=== PATIENT | female | born 1950 | race Caucasian/White ===

== ENCOUNTER → 2019-12-21 12:57 | Outpatient (BNVA) | payer MEDICAID, SELFPAY | PROVIDERS: Family Provider Family Medicine; PCP Family Medicine; Visit Provider Anesthesiology | DX: G89.29 Other chronic pain (principal); M51.36 Other intervertebral disc degeneration, lumbar region; M51.17 Intervertebral disc disorders with radiculopathy, lumbosacral region; M47.816 Spondylosis without myelopathy or radiculopathy, lumbar region; M54.2 Cervicalgia; M25.511 Pain in right shoulder; M25.552 Pain in left hip; F17.210 Nicotine dependence, cigarettes, uncomplicated; Z79.891 Long term (current) use of opiate analgesic | CPT/HCPCS: 99214 ==

== ENCOUNTER → 2020-01-02 12:12 | Outpatient (BNVA) | payer MEDICAID, SELFPAY | PROVIDERS: Family Provider Family Medicine; PCP Family Medicine; Visit Provider Psychiatry & Neurology Psychiatry | DX: F33.1 Major depressive disorder, recurrent, moderate (principal) | CPT/HCPCS: 99213 ==

== ENCOUNTER → 2020-04-02 08:31 | Outpatient (BNVA) | payer MEDICAID, SELFPAY | PROVIDERS: Family Provider Family Medicine; PCP Family Medicine; Visit Provider Psychiatry & Neurology Psychiatry | DX: F33.1 Major depressive disorder, recurrent, moderate (principal) | CPT/HCPCS: 99213 ==

== ENCOUNTER → 2020-04-05 10:07 | Outpatient (BNVA) | payer MEDICAID, SELFPAY | PROVIDERS: Family Provider Family Medicine; PCP Family Medicine; Visit Provider Anesthesiology | DX: G89.29 Other chronic pain (principal); M54.16 Radiculopathy, lumbar region; M51.36 Other intervertebral disc degeneration, lumbar region; M47.816 Spondylosis without myelopathy or radiculopathy, lumbar region; M54.9 Dorsalgia, unspecified; M54.2 Cervicalgia; Z89.619 Acquired absence of unspecified leg above knee; F17.210 Nicotine dependence, cigarettes, uncomplicated; Z79.891 Long term (current) use of opiate analgesic; Z71.6 Tobacco abuse counseling | CPT/HCPCS: 99214 ==

== ENCOUNTER 2020-04-18 13:52 | Outpatient (CLI) | payer MEDICAID, SELFPAY ==
--- NOTE | 2020-04-18 14:11 | XR_ITS ---
WS: [id number] XR chest 2V* [id number] REASON FOR EXAM: ELEVATED WBC WITH SOB FINDINGS: Comparisons were made to June 07, 2017. The heart and mediastinum are normal. The lung brooks are hyper aerated with evidence of chronic emphysema this changes bilaterally. There is no definite pneumonia, pleural effusion, pulmonary edema, or mass effect. Hilum and apices are normal. No osseous abnormalities. XR/XR chest 2V* [id number] IMPRESSION: Chronic obstructive pulmonary disease.
== END 2020-04-18 13:53 | disposition home or self-care (01) ==
LOC: RADWPI 13:53
PROVIDERS: Family Provider Family Medicine; PCP Family Medicine; Visit Provider Family Medicine
DX: D72.829 Elevated white blood cell count, unspecified (principal); R06.02 Shortness of breath
CPT/HCPCS: 71046

== ENCOUNTER → 2020-06-04 09:58 | Outpatient (BNVA) | payer MEDICAID, SELFPAY | PROVIDERS: Family Provider Family Medicine; PCP Family Medicine; Visit Provider Anesthesiology | DX: G89.29 Other chronic pain (principal); M51.36 Other intervertebral disc degeneration, lumbar region; M54.16 Radiculopathy, lumbar region; M47.816 Spondylosis without myelopathy or radiculopathy, lumbar region; M54.2 Cervicalgia; M54.9 Dorsalgia, unspecified; F17.210 Nicotine dependence, cigarettes, uncomplicated; Z89.619 Acquired absence of unspecified leg above knee; Z79.891 Long term (current) use of opiate analgesic | CPT/HCPCS: 99214 ==

== ENCOUNTER → 2020-08-01 08:49 | Outpatient (BNVA) | payer MEDICAID, SELFPAY | PROVIDERS: Family Provider Family Medicine; PCP Family Medicine; Visit Provider Nurse Practitioner | DX: G89.29 Other chronic pain (principal); M51.36 Other intervertebral disc degeneration, lumbar region; M47.816 Spondylosis without myelopathy or radiculopathy, lumbar region; M54.16 Radiculopathy, lumbar region; M54.2 Cervicalgia; M54.9 Dorsalgia, unspecified; F17.210 Nicotine dependence, cigarettes, uncomplicated; Z89.619 Acquired absence of unspecified leg above knee; Z79.891 Long term (current) use of opiate analgesic | CPT/HCPCS: 99214 ==

== ENCOUNTER → 2020-08-08 08:24 | Outpatient (BNVA) | payer MEDICAID, SELFPAY | PROVIDERS: Family Provider Family Medicine; PCP Family Medicine; Visit Provider Psychiatry & Neurology Psychiatry | DX: F33.1 Major depressive disorder, recurrent, moderate (principal) | CPT/HCPCS: 99214 ==

== ENCOUNTER → 2020-09-19 09:24 | Outpatient (BNVA) | payer MEDICAID, SELFPAY | PROVIDERS: Family Provider Family Medicine; PCP Family Medicine; Visit Provider Anesthesiology | DX: G89.29 Other chronic pain (principal); M47.816 Spondylosis without myelopathy or radiculopathy, lumbar region; M54.16 Radiculopathy, lumbar region; M51.36 Other intervertebral disc degeneration, lumbar region; M54.9 Dorsalgia, unspecified; M54.2 Cervicalgia; F17.210 Nicotine dependence, cigarettes, uncomplicated; Z89.619 Acquired absence of unspecified leg above knee; Z79.891 Long term (current) use of opiate analgesic; Z71.6 Tobacco abuse counseling | CPT/HCPCS: 99214 ==

== ENCOUNTER → 2020-11-05 07:49 | Outpatient (BNVA) | payer MEDICAID, SELFPAY | PROVIDERS: Family Provider Family Medicine; PCP Family Medicine; Visit Provider Psychiatry & Neurology Psychiatry | DX: F33.1 Major depressive disorder, recurrent, moderate (principal) | CPT/HCPCS: 99213 ==

== ENCOUNTER → 2020-11-28 12:27 | Outpatient (BNVA) | payer MEDICAID, SELFPAY | PROVIDERS: Family Provider Family Medicine; PCP Family Medicine; Visit Provider Anesthesiology | DX: G89.29 Other chronic pain (principal); M54.9 Dorsalgia, unspecified; M51.36 Other intervertebral disc degeneration, lumbar region; M47.816 Spondylosis without myelopathy or radiculopathy, lumbar region; M79.604 Pain in right leg; M54.2 Cervicalgia; F17.210 Nicotine dependence, cigarettes, uncomplicated; Z89.619 Acquired absence of unspecified leg above knee; Z79.891 Long term (current) use of opiate analgesic | CPT/HCPCS: 99214 ==

== ENCOUNTER 2020-12-26 10:53 | Outpatient (CLI) | payer MEDICAID, SELFPAY ==
--- NOTE | 2020-12-26 10:56 | MM_ITS ---
WS: [id number] BILATERAL DIGITAL SCREENING MAMMOGRAPHY WITH CAD CLINICAL INFORMATION: SCREENING HISTORY: Screening mammogram. No current complaints. COMPARISON: TECHNIQUE: Bilateral CC and MLO views. FINDINGS: The breasts are composed of heterogeneous fibroglandular density tissue, which can limit the detectio n of small underlying mass lesions. No suspicious mass, asymmetry, calcifications, or architectural d istortion. No evidence of malignancy. MM/[place] [id number] IMPRESSION: BI-RADS: 1-Negative FOLLOW UP: 1 Year Follow-up Recommend return to annual screening mammography.
== END 2020-12-26 10:54 | disposition home or self-care (01) ==
LOC: RADSHAW 10:55
PROVIDERS: PCP Family Medicine; Visit Provider Family Medicine
DX: Z12.31 Encounter for screening mammogram for malignant neoplasm of breast (principal)
CPT/HCPCS: 77067

== ENCOUNTER → 2021-01-29 12:35 | Outpatient (BNVA) | payer MEDICAID, SELFPAY | PROVIDERS: PCP Family Medicine; Visit Provider Nurse Practitioner | DX: G89.29 Other chronic pain (principal); M47.816 Spondylosis without myelopathy or radiculopathy, lumbar region; M51.36 Other intervertebral disc degeneration, lumbar region; M54.16 Radiculopathy, lumbar region; M54.9 Dorsalgia, unspecified; M54.2 Cervicalgia; M25.511 Pain in right shoulder; F33.1 Major depressive disorder, recurrent, moderate; F17.210 Nicotine dependence, cigarettes, uncomplicated; Z89.619 Acquired absence of unspecified leg above knee; Z79.891 Long term (current) use of opiate analgesic | CPT/HCPCS: 99213; 99214 ==

== ENCOUNTER → 2021-02-04 08:10 | Outpatient (BNVA) | payer MEDICAID, SELFPAY | PROVIDERS: PCP Family Medicine; Visit Provider Psychiatry & Neurology Psychiatry | DX: F33.1 Major depressive disorder, recurrent, moderate (principal) | CPT/HCPCS: 99213 ==

== ENCOUNTER 2021-03-13 10:47 | Outpatient (CLI) | payer MEDICAID, SELFPAY ==
--- NOTE | 2021-03-13 11:01 | CT_ITS ---
WS: [id number] LDCT LUNG CANCER SCREENING HISTORY: NICOTINE DEPENDENCE, CIGARETTES TECHNIQUE: Axial imaging performed from the apices to 1 cm below the costophrenic angles. Coronal and sagittal reformats are submitted with axial MIP series. All CT scans at [facility] use at least one of these dose optimization techniques: automated exposure control; mA and/or kV adjustment per patient size (includes targeted exams where dose is matched to clinical indication); or iterativ e reconstruction. DLP: 60.13 mGy.cm DIvol: 1.58 mGy COMPARISON: 04/26/2019 Diagnostic quality: Satisfactory Lung Nodules: No solid lung nodule. Groundglass attenuation or cystic lung disease in the LEFT lower lobe measuring 15 mm. This area of groundglass attenuation or cystic bronchiectasis is more prominent as compared to 04/26/2019. There is increased soft tissue in the distal LEFT main bronchus into the p roximal LEFT lower lobe bronchus. Lungs: Moderate pulmonary hyperexpansion from emphysema. Heart: Normal size heart. Mild atherosclerosis [place] coronary arteries. Other findings: Moderate atherosclerosis aorta. Variant RIGHT subclavian artery. CT/CT lung screening [id number] IMPRESSION: LUNG-RADS: 4A-Probably Suspicious FOLLOW UP: 3 Month LDCT OTHER FINDINGS (S MODIFIER): None. 3 month follow-up CT recommended to reevaluate the LEFT distal main bronchial o pacification and also the groundglass attenuation in the LEFT lower lobe.
== END 2021-03-13 10:48 | disposition home or self-care (01) ==
LOC: CT 10:51
PROVIDERS: PCP Family Medicine; Visit Provider Family Medicine
DX: F17.200 Nicotine dependence, unspecified, uncomplicated (principal); Z12.2 Encounter for screening for malignant neoplasm of respiratory organs
CPT/HCPCS: 71271

== ENCOUNTER → 2021-03-20 11:43 | Outpatient (BNVA) | payer MEDICAID, SELFPAY | PROVIDERS: PCP Family Medicine; Visit Provider Anesthesiology | DX: G89.29 Other chronic pain (principal); M54.9 Dorsalgia, unspecified; M51.36 Other intervertebral disc degeneration, lumbar region; M47.816 Spondylosis without myelopathy or radiculopathy, lumbar region; M54.2 Cervicalgia; F17.210 Nicotine dependence, cigarettes, uncomplicated; Z89.619 Acquired absence of unspecified leg above knee; Z79.891 Long term (current) use of opiate analgesic | CPT/HCPCS: 99214 ==

== ENCOUNTER → 2021-04-29 12:24 | Outpatient (BNVA) | payer MEDICAID, SELFPAY | PROVIDERS: PCP Family Medicine; Visit Provider Psychiatry & Neurology Psychiatry | DX: F33.1 Major depressive disorder, recurrent, moderate (principal); F17.200 Nicotine dependence, unspecified, uncomplicated | CPT/HCPCS: 99213 ==

== ENCOUNTER → 2021-05-29 10:23 | Outpatient (BNVA) | payer MEDICAID, SELFPAY | PROVIDERS: PCP Family Medicine; Visit Provider Nurse Practitioner | DX: G89.29 Other chronic pain (principal); M47.816 Spondylosis without myelopathy or radiculopathy, lumbar region; M51.36 Other intervertebral disc degeneration, lumbar region; M54.16 Radiculopathy, lumbar region; M54.2 Cervicalgia; F17.200 Nicotine dependence, unspecified, uncomplicated; Z89.619 Acquired absence of unspecified leg above knee; Z79.891 Long term (current) use of opiate analgesic | CPT/HCPCS: 99213 ==

== ENCOUNTER → 2021-07-25 10:19 | Outpatient (BNVA) | payer MEDICAID, SELFPAY | PROVIDERS: PCP Family Medicine; Visit Provider Anesthesiology | DX: G89.29 Other chronic pain (principal); M51.36 Other intervertebral disc degeneration, lumbar region; M47.816 Spondylosis without myelopathy or radiculopathy, lumbar region; M54.2 Cervicalgia; Z89.619 Acquired absence of unspecified leg above knee; F17.210 Nicotine dependence, cigarettes, uncomplicated; Z79.891 Long term (current) use of opiate analgesic | CPT/HCPCS: 99214 ==

== ENCOUNTER → 2021-07-31 10:45 | Outpatient (BNVA) | payer MEDICAID, SELFPAY | PROVIDERS: PCP Family Medicine; Visit Provider Internal Medicine Cardiovascular Disease | DX: R06.02 Shortness of breath (principal); Z20.822 Contact with and (suspected) exposure to COVID-19 | CPT/HCPCS: 87635 ==

== ENCOUNTER 2021-08-07 09:20 | Outpatient (CLI) | payer MEDICAID, SELFPAY ==
--- NOTE | 2021-08-07 10:22 | PFTS_ITS ---
Date of Study:08/07/21 Date of Dictation: MECHANICS: Forced vital capacity (FVC) is reduced. Forced expiratory volume in one second (FEV1) is reduced. FEV1/FVC is reduced. FLOW VOLUME LOOP: Reduced flow at all lung volumes with significant scooping. LUNG VOLUMES: Total lung capacity (TLC) is increased. Residual volume (RV) is increased. DIFFUSING CAPACITY FOR CARBON MONOXIDE: Severely reduced. INTERPRETATION: The postbronchodilator spirometry is consistent with very severe airflow obstruction. There is a significant postbronchodilator response. Lung volumes are consistent with hyperinflation and air trapping. Gas exchange (DLCO) is severely reduced. MTDD
== END 2021-08-07 09:21 | disposition home or self-care (01) ==
PROVIDERS: PCP Family Medicine; Visit Provider Internal Medicine Pulmonary Disease
DX: R06.02 Shortness of breath (principal)
CPT/HCPCS: 94060; 94726; 94729; J7611

== ENCOUNTER → 2021-08-22 10:59 | Outpatient (BNVA) | payer MEDICAID, SELFPAY | PROVIDERS: PCP Family Medicine; Visit Provider Psychiatry & Neurology Psychiatry | DX: F33.1 Major depressive disorder, recurrent, moderate (principal); F17.200 Nicotine dependence, unspecified, uncomplicated | CPT/HCPCS: 99214 ==

== ENCOUNTER → 2021-09-23 10:30 | Outpatient (BNVA) | payer MEDICAID, SELFPAY | PROVIDERS: PCP Family Medicine; Visit Provider Anesthesiology | DX: G89.29 Other chronic pain (principal); M51.36 Other intervertebral disc degeneration, lumbar region; M47.816 Spondylosis without myelopathy or radiculopathy, lumbar region; M54.2 Cervicalgia; Z89.619 Acquired absence of unspecified leg above knee; Z79.891 Long term (current) use of opiate analgesic; F17.200 Nicotine dependence, unspecified, uncomplicated | CPT/HCPCS: 99214 ==

== ENCOUNTER → 2021-11-20 10:41 | Outpatient (BNVA) | payer MEDICAID, SELFPAY | PROVIDERS: PCP Family Medicine; Visit Provider Anesthesiology | DX: G89.29 Other chronic pain (principal); M47.816 Spondylosis without myelopathy or radiculopathy, lumbar region; M54.2 Cervicalgia; F17.210 Nicotine dependence, cigarettes, uncomplicated; Z89.619 Acquired absence of unspecified leg above knee; Z79.891 Long term (current) use of opiate analgesic | CPT/HCPCS: 99214 ==

== ENCOUNTER 2022-05-23 23:13 | Emergency (ER) | payer MEDICAID, SELFPAY ==
[2022-05-23 23:20] VITALS: PULSE 94; RESP 20; TEMP 37.1; O2SAT 92; BMI 18.3
--- NOTE | 2022-05-23 23:23 | ECG_ITS ---
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 Measurements Intervals [place] Rate: 93 P: 80 ME: 155 QRS: 85 QRSD: 66 T: 85 QT: 338 QTc: 421 Interpretive Statements SINUS RHYTHM POSSIBLE RIGHT ATRIAL ENLARGEMENT [0.25mV P-WAVE] POSSIBLE LEFT ATRIAL ENLARGEMENT [-0.1mV P-WAVE IN V1/V2] POSSIBLE ANTERIOR MYOCARDIAL INFARCTION , PROBABLY OLD [30 ms Q WAVE IN V3/V4, OR R < 0.2 mV IN V4] No previous ECG available for comparison Heavy baseline artifact, need to repeat the study Electronically Signed On 05-24-2022 20:58:56 CDT by Mk Lara M.D. [id number]
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
[2022-05-23 23:26] VITALS: BP 119/75; PULSE 90; RESP 30; O2SAT 91
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
[2022-05-23] MEDS: ipratropium-albuterol 3 mL Neb INHALATION (23:54)
[2022-05-23 23:55] VITALS: PULSE 90; RESP 18; O2SAT 91
[2022-05-23 23:58] LABS: Basophils # 0.1 10^3/uL (0.0-0.1); Basophils % 0.5 %; Eosinophils % 0.1 %; Hematocrit 43.7 % (37.0-47.0); Hemoglobin 13.8 g/dL (11.5-15.3); Lymphocytes % 6.1 %; Mean Corpuscular HGB Conc 31.6 g/dL (30.0-36.0); Mean Corpuscular Hemoglobin 29.9 pg (28.0-34.0); Mean Corpuscular Volume 94.8 fl (81-99); Mean Platelet Volume 10.8 fL (7.4-10.4); Monocytes # 0.7 10^3/uL (0.2-0.9); Monocytes % 4.1 %; Neutrophils # 13.93 10^3/uL (1.8-7.7); Nucleated Red Blood Cells % 0 %; Platelet Count 410 10^3/cmm (130-400); Red Blood Count 4.61 10^6/uL (4.1-5.3); Red Cell Distribution Width 14.6 % (12.1-15.1); White Blood Count 15.8 10^3/uL (4.0-10.0)
[2022-05-24 00:02] VITALS: PULSE 88; O2SAT 89
[2022-05-24 00:18] LABS: Alanine Aminotransferase 26 U/L (0-33); Albumin Level 3.5 g/dL (3.5-5.2); Alkaline Phosphatase 103 IU/L (35-105); Anion Gap 13.1 (5-19); Aspartate Amino Transferase 29 U/L (0-32); Blood Urea Nitrogen 16 mg/dL (8-23); Calcium 9.3 mg/dL (8.5-10.5); Carbon Dioxide 30 mmol/L (22-29); Chloride 100 mmol/L (98-107); Globulin 3.3 g/dL (1.3-4.6); Glomerular Filtration Rate 98.8 mL/min (90-130); Glucose 116 mg/dL (65-115); Osmolality Calculated 290 mOsm/kg (285-295); Potassium 4.1 mmol/L (3.5-5.1); Sodium 139 mmol/L (136-145); Total Bilirubin 0.5 mg/dL (0.15-1.2); Total Protein 6.8 g/dL (6.6-8.7)
[2022-05-24 00:19] LABS: ABG PCO2 47.5 mmHg (35-45); ABG PH Result 7.41 (7.35-7.45); Arterial Blood Gas Hematocrit 42.3 % (37-47); Base Excess ABG 4.7 mmol/L (-2.0-2.0); Blood Gas Allen Test Pos; Blood Gas Sample Type Arterial; Carboxyhemoglobin 3.1 %THgb (0.4-20.1); HCO3 ABG 30.3 mmol/L (22-26); HGB O2 Sat 84.4 % (95-100); Methemoglobin 0.9 % (0.4-1.5); PO2 ABG 53.4 mmHg (80.0-100.0); Total Hemoglobin 13.8 g/dL (12-16)
[2022-05-24 00:21] LABS: Blood Gas LPM 4.5 %; Blood Gas Sample Site Radial, left; Oxygen Device NC
[2022-05-24 00:26] VITALS: BP 129/70; PULSE 89; RESP 22; O2SAT 92
[2022-05-24 00:56] VITALS: BP 111/65; PULSE 96; RESP 25; O2SAT 97
[2022-05-24 01:00] VITALS: BP 111/68; PULSE 95; RESP 28; O2SAT 92
[2022-05-24 02:00] VITALS: BP 93/64; RESP 26; O2SAT 94
[2022-05-24 02:12] VITALS: BP 93/64; RESP 26; O2SAT 94
== END 2022-05-24 03:09 | disposition home or self-care (01) ==
PROVIDERS: Emergency Provider Emergency Medicine; PCP Family Medicine
DX: T59.811A Toxic effect of smoke, accidental (unintentional), initial encounter (principal); Z79.82 Long term (current) use of aspirin; Z89.611 Acquired absence of right leg above knee; F17.210 Nicotine dependence, cigarettes, uncomplicated; X08.00XA Exposure to bed fire due to unspecified burning material, initial encounter
CPT/HCPCS: 36600; 71045; 80053; 82805; 85025; 93005; 94640; 96374; 99285; J2930

== ENCOUNTER 2022-06-30 14:44 | Outpatient (CLI) | payer MEDICAID, SELFPAY ==
--- NOTE | 2022-06-30 14:51 | CT_ITS ---
WS: [id number] LDCT LUNG CANCER SCREENING TECHNIQUE: Noncontrast CT of the chest with coronal and sagittal reformatted images. CLINICAL INFORMATION: lung screening COMPARISON: CT lung screen March 13, 2021 DLP: 86.87 mGy.cm DIvol: Mean CTDIvol: 1.60 (mGy) All CT scans at [facility] use at least one of these dose optimization techniques: automat ed exposure control; mA and/or kV adjustment per patient size (includes targeted exams where dose is matched to clinical indication); or iterative reconstruction. FINDINGS: Normal caliber ascending thoracic aorta. Mild aortic calcification. Coronary calcification. No medias tinal or hilar lymphadenopathy. No axillary lymphadenopathy. Adrenal glands are normal. Normal GE junction. Normal thoracic spine. Normal endobronchial tree. A fe w tiny pulmonary nodules in the LEFT upper lobe. Slight hazy atelectasis in the lung bases. Persistent previously described groundglass opacity or impacted cystic bronchiectasis in the LEFT low er lobe has a more coalesced appearance today measuring 15 x 6 mm. Recommend 3 month follow-up to ass ess stability. This was not described on the prior PET/CT June 14, 2021. Additional groundglass opa [place] RIGHT lower lobe posteriorly is new from previous and may be inflammatory. This measures approxi mately 10 mm. Incidental areas of subsegmental atelectasis and fibrosis in the lingula, both lung bases posteriorly and RIGHT middle lobe. CT/CT lung screening [id number] IMPRESSION:Persistent previously described groundglass opacity or impacted cyst ic bronchiectasis in the LEFT lower lobe has a more coalesced appearance today measuring 15 x 6 mm. Recommend 3 month follow-up to assess stability. This was not described on the prior PET/CT June 14, 2021. LUNG-RADS: 4A-Probably Suspicious FOLLOW UP: 3 Month LDCT
== END 2022-06-30 14:45 | disposition home or self-care (01) ==
LOC: RAD 14:46
PROVIDERS: PCP Family Medicine; Visit Provider Internal Medicine Pulmonary Disease
DX: R91.1 Solitary pulmonary nodule (principal); J43.2 Centrilobular emphysema; R63.4 Abnormal weight loss; Z71.6 Tobacco abuse counseling; Z91.89 Other specified personal risk factors, not elsewhere classified; F17.210 Nicotine dependence, cigarettes, uncomplicated
CPT/HCPCS: 71271; 99214

== ENCOUNTER 2022-10-29 09:38 | Outpatient (CLI) | payer MEDICAID, SELFPAY | END 2022-10-29 09:39 | disposition home or self-care (01) | LOC: RT 09:39 | PROVIDERS: PCP Family Medicine; Visit Provider Internal Medicine Pulmonary Disease | DX: J44.9 Chronic obstructive pulmonary disease, unspecified (principal) | CPT/HCPCS: 94060; 94726; 94729; J7613 ==

== ENCOUNTER 2022-10-29 09:39 | Outpatient (CLI) | payer MEDICAID, SELFPAY ==
--- NOTE | 2022-10-29 | CT_ITS ---
WS: [id number] CT CHEST TECHNIQUE: Noncontrast CT of the chest with coronal and sagittal reformatted images. CLINICAL INFORMATION: 3 month f/u groundglass opacity left lower lobe COMPARISON: CT lung screening June 2022 DLP: 479.[address] scans at [facility] use at least one of these dose optimization techniques: automated e xposure control; mA and/or kV adjustment per patient size (includes targeted exams where dose is matc hed to clinical indication); or iterative reconstruction. FINDINGS: Previously described LEFT lower lobe opacity has nearly resolved today. Tiny amount of residual groun dglass infiltrate in this area. Additional groundglass opacity RIGHT lower lobe posteriorly previousl y described. This has completely resolved compared to the prior examination likely inflammatory. Lung s are otherwise well aerated. A few calcified granulomas. No focal pneumonia or pleural fluid. Normal caliber thoracic aorta. Aortic calcification. No mediastinal or hilar lymphadenopathy. No axil cony lymphadenopathy. Tiny esophageal hiatal hernia. Adrenal glands are normal. Mild thoracic curve. Mild thoracic kyphosis . No new suspicious findings. CT/CT chest wo con [id number] IMPRESSION: 1. Previously described LEFT lower lobe opacity has improved and nearly resolv ed today. Small amount of residual groundglass infiltrate in this area. 2. Additional RIGHT lower lobe groundglass opacity previously described has co mpletely resolved likely inflammatory. 3. No new suspicious pulmonary parenchymal opacities. 4. No mediastinal or hilar lymphadenopathy. 5. No other suspicious findings.
== END 2022-10-29 09:40 | disposition home or self-care (01) ==
LOC: RAD 09:39
PROVIDERS: PCP Family Medicine; Visit Provider Internal Medicine Pulmonary Disease
DX: R91.1 Solitary pulmonary nodule (principal)
CPT/HCPCS: 71250

== ENCOUNTER 2023-01-22 13:27 | Outpatient (CLI) | payer MEDICARE, MEDICAID, SELFPAY ==
--- NOTE | 2023-01-22 13:52 | XR_ITS ---
WS: [id number] SCREENING DEXA SCAN [employer] CLINICAL INFORMATION: OSTEOPOROSIS COMPARISON: None. FINDINGS: The L1-L4 bone mineral density measures 1.232 g/cm2. This corresponds to a T score score of 0.4 and Z score of 2.7. Left femoral neck bone mineral density measures 0.630 g/cm2. This corresponds to a T score of -3.0 an d Z score of -1.1. Right femoral neck bone mineral density measures 0.350 g/cm2. This corresponds to a T score -5.2of an d Z score of -3.3. Mean femoral neck bone mineral density measures 0.490 g/cm2. This corresponds to a T score of -4.1 an d Z score of -2.2. XR/XR DEXA axial skeleton* [id number] IMPRESSION: Normal bone mineralization lumbar spine although likely spuriously elevated due to endplate sclerosis. Osteoporosis femoral necks Patient's FRAX calculated 10 year probability for major osteoporotic fracture i s 45.1 % and osteoporotic hip fracture is 35.8%.
--- NOTE | 2023-01-22 14:12 | MM_ITS ---
WS: [id number] BILATERAL SCREENING DIGITAL TOMOSYNTHESIS MAMMOGRAM WITH CAD HISTORY: SCREEN COMPARISON: 12/26/2020, 08/18/2011 Bilateral CC and MLO views with tomosynthesis and synthetic mammography submitted. Computer aided det ection analyzed. Breast composition: There are scattered areas of fibroglandular density. No suspicious masses, microc alcifications or architectural distortion. MM/[place] [id number] IMPRESSION: BI-RADS: 1-Negative FOLLOW UP: 1 Year Follow-up
== END 2023-01-22 13:28 | disposition home or self-care (01) ==
PROVIDERS: PCP Family Medicine; Visit Provider Family Medicine
DX: Z12.31 Encounter for screening mammogram for malignant neoplasm of breast (principal); M81.0 Age-related osteoporosis without current pathological fracture
CPT/HCPCS: 77063; 77067; 77080

== ENCOUNTER 2023-11-03 11:33 | Outpatient (CLI) | payer MEDICARE, SELFPAY ==
--- NOTE | 2023-11-03 11:40 | CT_ITS ---
WS: [id number] LDCT LUNG CANCER SCREENING HISTORY: NICOTINE DEPENDENCE,CIGARETTES TECHNIQUE: Axial imaging performed from the apices to 1 cm below the costophrenic angles. Coronal and sagittal reformats are submitted with axial MIP series. All CT scans at [facility] use at least one of these dose optimization techniques: automated exposure control; mA and/or kV adjustment per patient size (includes targeted exams where dose is matched to clinical indication); or iterativ e reconstruction. DLP: 45.31 mGy.cm DIvol: Mean CTDIvol: 0.70 (mGy) COMPARISON: 10/29/2022 Diagnostic quality: Satisfactory Lungs: Hyperexpanded lungs from centrilobular emphysema. Micronodule in the anterior LEFT upper lobe, image 26 series 4. Benign granuloma RIGHT middle lobe. Heart: Normal size heart with no pericardial effusion.. Other findings: Calcified thoracic aorta. Normal sized pulmonary artery. Moderate calcification coron vlad arteries. Small hiatal hernia. IMPRESSION: CT/CT lung screening [id number] LUNG-RADS: 2-Benign Appearance or Behavior FOLLOW UP: 12 Month: Continue annual screening with LDCT OTHER FINDINGS (S MODIFIER): None.
== END 2023-11-03 11:34 | disposition home or self-care (01) ==
LOC: RAD 11:34
PROVIDERS: PCP Family Medicine; Visit Provider Family Medicine
DX: Z12.2 Encounter for screening for malignant neoplasm of respiratory organs (principal); F17.210 Nicotine dependence, cigarettes, uncomplicated
CPT/HCPCS: 71271

== ENCOUNTER 2024-05-08 14:11 | Outpatient (CLI) | payer MEDICARE, SELFPAY ==
--- NOTE | 2024-05-08 14:19 | MM_ITS ---
WS: [id number] BILATERAL 3D TOMOSYNTHESIS DIGITAL SCREENING MAMMOGRAPHY WITH CAD CLINICAL INFORMATION: SCREENING HISTORY: Screening mammogram. No current complaints. COMPARISON: 01/22/2023 TECHNIQUE: Bilateral CC and MLO views. FINDINGS: The breasts are composed of heterogeneous fibroglandular density tissue, which can limit the detectio n of small underlying mass lesions. No suspicious mass, asymmetry, calcifications, or architectural d istortion. No evidence of malignancy. Vascular calcification. MM/[place] [id number] IMPRESSION: BI-RADS: 2-Benign FOLLOW UP: 1 Year Follow-up Recommend return to annual screening mammography.
== END 2024-05-08 14:12 | disposition home or self-care (01) ==
LOC: RAD 14:12
PROVIDERS: PCP Family Medicine; Visit Provider Family Medicine
DX: Z12.31 Encounter for screening mammogram for malignant neoplasm of breast (principal)
CPT/HCPCS: 77063; 77067

== ENCOUNTER 2024-11-24 11:36 | Outpatient (CLI) | payer MEDICARE, SELFPAY ==
--- NOTE | 2024-11-24 11:40 | CT_ITS ---
WS: [id number] LDCT LUNG CANCER SCREENING HISTORY: NICOTINE DEPENDENCE TECHNIQUE: Axial imaging performed from the apices to 1 cm below the costophrenic angles. Coronal and sagittal reformats are submitted with axial MIP series. All CT scans at [facility] use at least one of these dose optimization techniques: automated exposure control; mA and/or kV adjustment per patient size (includes targeted exams where dose is matched to clinical indication); or iterativ e reconstruction. DLP: 44.71 mGy.cm DIvol: Mean CTDIvol: 0.70 (mGy) COMPARISON: 11/03/2023 Diagnostic quality: Satisfactory Lungs: Chronic emphysema with biapical pleural thickening. Small pleural tags and fibrosis at the kana g apices are stable. Micronodule unchanged LEFT upper lobe. Benign granuloma RIGHT middle lobe. No pu lmonary mass or nodule. No endobronchial lesions. Heart: Normal size heart with no pericardial effusion.. Other findings: Mildly ectatic thoracic aorta. Mild atherosclerotic plaque. Normal size pulmonary art joss. Extensive coronary artery calcifications. Small hiatal hernia. No adrenal mass. CT/CT lung screening [id number] IMPRESSION: LUNG-RADS: 2-Benign Appearance or Behavior FOLLOW UP: 12 Month: Continue annual screening with LDCT OTHER FINDINGS (S MODIFIER): None.
== END 2024-11-24 11:37 | disposition home or self-care (01) ==
LOC: RAD 11:37
PROVIDERS: PCP Family Medicine; Visit Provider Family Medicine
DX: Z12.2 Encounter for screening for malignant neoplasm of respiratory organs (principal); F17.210 Nicotine dependence, cigarettes, uncomplicated
CPT/HCPCS: 71271

== ENCOUNTER 2025-05-25 10:52 | Inpatient (IN) | payer MEDICARE, SELFPAY ==
[2025-05-25] VITALS (12 sets, daily range): BP systolic 96–146; BP diastolic 57–75; PULSE 59–78; RESP 15–20; TEMP 36.3–36.9; O2SAT 92–99; BMI 18.3; BMI 18.2
--- NOTE | 2025-05-25 10:55 | ECG_ITS ---
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
--- NOTE | 2025-05-25 10:55 | XR_ITS ---
WS: [id number] Portable AP upright chest, 05/25/2025 Clinical Data: shortness of breath Comparison: Portable chest, 05/23/2022 Findings: No nodules, masses or effusions are seen. The heart is normal. The pulmonary vascularity is not increased. No pneumonia or pneumothorax is seen. The diaphragms are flattened. The aortic arch shows calcification. Monitor leads are on the chest wall. XR/XR chest 1V portable [id number] Impression: Hyperinflation and atherosclerosis.
[2025-05-25 11:05] LABS: Hematocrit 48.2 % (36-47); Hemoglobin 15.50 g/dL (11.27-16.99); Mean Corpuscular HGB Conc 32.2 g/dL (30-55); Mean Corpuscular Hemoglobin 29.4 pg (27-33); Mean Corpuscular Volume 91.3 fl (85-98); Nucleated Red Blood Cells % 0 %; Platelet Count 176 10^3/cmm (157-399); Red Blood Count 5.28 10^6/uL (3.85-5.65); White Blood Count 11.80 10^3/uL (3.29-11.43)
--- OUTSIDE RECORDS SUMMARY | 2025-05-25 11:08 | XMS_ITS | Encounter Summary ---
Author Organization [email or web address] [facility] Address [address] [place] [address] Care Team Providers Care Facilities Custodian Name Role Phone Katina Kay MD Primary Care Provider Encounter Details Date Type Department Care Team (Latest Contact Info) Description 05/26/2002 Outpatient Historical HIS [facility] Abdoul Fraire MD [address] [place] [address] MENOPAUSAL DISORDER NEC (Primary Dx); TOBACCO USE DISORDER; OTHER MALAISE AND FATIGUE Social History Tobacco Use Types Packs/Day Years Used Date Smoking Tobacco: Never Assessed Comments Unknown Sex and Gender Information Value Date Recorded Sex Assigned at Not on file Legal Sex Female 6:07 AM KELP OR SEAGRASS GATHERER Gender Identity Not on file Sexual Orientation Not on file documented as of this encounter Plan of Treatment Not on file documented as of this encounter Visit Diagnoses Diagnosis Other specified menopausal and postmenopausal disorder- Primary Tobacco use disorder Other malaise and fatigue documented in this encounter Care Teams Facilities Custodian Relationship Specialty Start Date End Date Katina Kay MD [address] [place] [address] PCP - General Family Practice 01/25/19 documented as of this encounter
--- OUTSIDE RECORDS SUMMARY | 2025-05-25 11:08 | XMS_ITS | Clinical Summary ---
Author Organization [facility] Address [address] [place] [address] Phone Care Team Providers Care Tactical Air Control Party Manager Name Role Phone Katina Kay MD Primary Care Provider Allergies Active Allergy Reactions Criticality Noted Date Comments Codeine Nausea and Vomiting Low 09/08/2015 Gabapentin Hives High 09/08/2015 Prochlorperazine Swelling Low 09/08/2015 Medications aspirin (KOLBY CHEWABLE) 81 mg Tablet, Chewable Take 81 mg by mouth daily. Active transfer tub bench DME EQUIPMENT by See Admin Instructions route daily. 1 Each 0 5 Active oxyCODONE (OXYCONTIN) 20 mg Controlled Release 12 hour crush resistant tablet Take 1 Tablet (20 mg) by mouth every 12 hours. Max Daily Amount: 40 mg 60 Tablet 0 5 Active oxyCODONE (ROXICODONE) 10 mg tablet Take 1 Tablet (10 mg) by mouth every 6 hours as needed for Pain, Break-Through or Pain, Severe (For Pain Scale 7-10). Max Daily Amount: 40 mg 90 Tablet 0 5 Active Additional Information Patient taking differently: 5 mgOral EVERY 6 HOURS PRN, Pain, Break-Through, Pain, Severe, For Pain Scale 7-10, Reported on 05/27/2016 clonazePAM (KLONOPIN) 0.5 mg Tablet Take 1 Tablet (0.5 mg) by mouth see administration instructions Take one tab bid during the daytime hours and 2 tabs at bedtime. 60 Tablet 1 5 Active atorvastatin (LIPITOR) 10 mg tablet Take 1 Tablet (10 mg) by mouth Daily LATE. 30 Tablet 0 5 Active telmisartan (MICARDIS) 20 mg Tablet Take 1 Tablet (20 mg) by mouth daily. 30 Tablet 0 5 Active metoprolol tartrate (LOPRESSOR) 25 mg tablet Take 1 Tablet (25 mg) by mouth 2 times daily. 60 Tablet 0 5 Active famotidine (PEPCID) 20 mg tablet Take 1 Tablet (20 mg) by mouth 2 times daily. 60 Tablet 0 5 Active ferrous sulfate (FEOSOL) 325 mg (65 mg iron) tablet Take 1 Tablet (325 mg) by mouth 2 times daily. 60 Tablet 0 5 Active docusate sodium (COLACE) 100 mg capsule Take 1 Capsule (100 mg) by mouth 2 times daily. 60 Capsule 0 5 Active sennosides (SENOKOT XTRA) 17.2 mg Tablet tablet Take 1 Tablet (17.2 mg) by mouth 2 times daily. 60 Tablet 0 5 Active metaxalone (SKELAXIN) 400 mg tablet Take 1 Tablet (400 mg) by mouth 3 times daily as needed for Spasm. 60 Tablet 0 5 Active levothyroxine 88 mcg tablet Take 1 Tablet (88 mcg) by mouth daily surgeon partner. 30 Tablet 0 5 Active Cholecalcifero l, Vitamin D3, 3,000 unit Tablet Take 1 Tablet by mouth daily. 100 Tablet 0 5 Active pregabalin (LYRICA) 150 mg CapsuleIndicat ions:PVD (peripheral vascular disease) Take 200 mg by mouth every 8 hours . Active methocarbamol (ROBAXIN) 500 mg tablet Take 500 mg by mouth 3 times daily. Active fluticasone-sa lmeterol (ADVAIR DISKUS) 100-50 mcg/dose disk inhaler Take 1 Puff by inhalation 2 times daily. Active Active Problems Problem Noted Date Diagnosed Date Difficulty walking 11/06/2015 Above knee amputation of right lower extremity 1 11-10-14 09/12/2015 Anxiety 09/12/2015 Chronic low back pain 09/12/2015 Chronic pain in left shoulder 09/12/2015 Essential hypertension 09/08/2015 PVD (peripheral vascular disease) 09/08/2015 Tobacco abuse 09/08/2015 Major depressive disorder, recurrent episode, mo derate Resolved Problems Problem Noted Date Diagnosed Date Resolved Date Arterial occlusion 09/08/2015 9 Social History Tobacco Use Types Packs/Day Years Used Date Smoking Tobacco: Every Day Cigarettes 0.5 35 Smokeless Tobacco: Never Comments:currently smokes 0. 5 ppd or more 7.9.20 Alcohol Use Standard Drinks/Week Comments No 0 (1 standard drink = 0.6 oz pur e alcohol) Comments Unknown Sex and Gender Information Value Date Recorded Sex Assigned at Not on file Legal Sex Female 6:07 AM CADMIUM BURNER Gender Identity Not on file Sexual Orientation Not on file Last Filed Vital Signs Vital Sign Reading Time Taken Comments Blood Pressure 120/80 05/09/2020 1:13 PM CDT Pulse 82 05/09/2020 1:00 PM CDT Temperature 36 C (96.8 F) 11/06/2015 10:19 AM CADMIUM BURNER Respiratory Rate 18 09/21/2015 4:17 AM CADMIUM BURNER Oxygen Saturation 89% 05/09/2020 1:00 PM CDT Inhaled Oxygen Concentration - - Weight 54.9 kg (121 lb) 01/25/2019 1:00 PM CDT Height 162.6 cm (5' 4 ) 01/25/2019 1:00 PM CDT Body Mass Index 20.77 01/25/2019 1:00 PM CDT Plan of Treatment Health Maintenance Due Date Last Done Comments DTAP/TDAP/TD VACCINES (1 - Tdap) 01/06/1971 PNEUMOCOCCAL VACCINE 50+ YEARS (1 of 2 - PCV) 01/06/19 71 BREAST CANCER SCREENING 1992 COLORECTAL SCREENING 01/06/1997 Colorectal Cancer Screening 01/06/1997 FIT-DNA Q 3 years 01/06/1997 FIT/FOBT Q 1 year 01/06/1997 Flex Sig/CT Colonography Q 5 years 01/06/1997 ZOSTER VACCINE (1 of 2) 01/06/2002 RSV VACCINE (60+ or ) (1 - Risk 60-74 years 1-dose series) 2012 OSTEOPOROSIS SCREENING 01/06/2017 INFLUENZA VACCINE (#1) 2025 Medical Devices Implanted Type Area Senior Manufacturing Test Engineer Device Identifier Shelf Expiration Date Model / Serial / Lot Sealant Mynxgrip 5fr [id number] - Sna Implanted:Qty: 1 on 09/08/2015 by Mary Ratliff RT at [facility] Sealant Left: Groin ACCESS CLOSURE 07/01/2016 [id number] / NA / [id number] Insurance MEDICAID [place] Advance Directives For more information, please contact: [phone] * Full Code (Latest Code Status on File) Date Activated Date Inactivated Comments 09/12/2015 7:48 PM 09/21/2015 4:21 PM * Full Code Date Activated Date Inactivated Comments 09/10/2015 4:48 PM 09/12/2015 7:48 PM * Full Code Date Activated Date Inactivated Comments 09/10/2015 12:06 PM 09/10/2015 4:48 PM * Full Code Date Activated Date Inactivated Comments 09/08/2015 5:10 PM 09/10/2015 12:06 PM * Full Code Date Activated Date Inactivated Comments 09/08/2015 5:10 PM 09/08/2015 5:10 PM Care Teams Tactical Air Control Party Manager Relationship Specialty Start Date End Date Katina Kay MD [address] [place] [phone] PCP - General Family Practice 01/25/19
--- OUTSIDE RECORDS SUMMARY | 2025-05-25 11:08 | XMS_ITS | Clinical Summary ---
Author Organization [employer] Address [address] [facility] Attn: [place] [address] Care Team Providers Care Land Inspector Name Role Phone Katina Kay MD Primary Care Provider Allergies Active Allergy Reactions Criticality Noted Date Comments Codeine Nausea and Vomiting Low 09/08/2015 Gabapentin Hives High 09/08/2015 Prochlorperazine Swelling Low 09/08/2015 Medications ferrous sulfate 325 mg (65 mg iron) tablet Take 1 Tablet (325 mg) by mouth 2 times daily. 60 Tablet 0 5 Active aspirin (KOLBY CHEWABLE) 81 mg Tablet, Chewable Take 81 mg by mouth daily. 5 Active oxyCODONE (ROXICODONE) 10 mg tablet Take 1 Tablet (10 mg) by mouth every 6 hours as needed for Pain, Break-Through or Pain, Severe (For Pain Scale 7-10). Max Daily Amount: 40 mg 90 Tablet 0 5 Active Cholecalcifero l, Vitamin D3, 75 mcg (3,000 unit) Tablet Take 1 Tablet by mouth daily. 100 Tablet 0 5 Active transfer tub bench DME EQUIPMENT by See Admin Instructions route daily. 1 Each 0 5 Active clonazePAM (KlonoPIN) 0.5 mg Tablet Take 1 Tablet (0.5 mg) by mouth see administration instructions Take one tab bid during the daytime hours and 2 tabs at bedtime. 60 Tablet 1 5 Active docusate sodium (COLACE) 100 mg capsule Take 1 Capsule (100 mg) by mouth 2 times daily. 60 Capsule 0 5 Active levothyroxine 88 mcg tablet Take 1 Tablet (88 mcg) by mouth daily cleaner touch up worker. 30 Tablet 0 5 Active metaxalone (SKELAXIN) 400 mg tablet Take 1 Tablet (400 mg) by mouth 3 times daily as needed for Spasm. 60 Tablet 0 5 Active famotidine (PEPCID) 20 mg tablet Take 1 Tablet (20 mg) by mouth 2 times daily. 60 Tablet 0 5 Active metoprolol tartrate (LOPRESSOR) 25 mg tablet Take 1 Tablet (25 mg) by mouth 2 times daily. 60 Tablet 0 5 Active oxyCODONE (OxyCONTIN) 20 mg Controlled Release 12 hour crush resistant tablet Take 1 Tablet (20 mg) by mouth every 12 hours. Max Daily Amount: 40 mg 60 Tablet 0 5 Active atorvastatin (LIPITOR) 10 mg tablet Take 1 Tablet (10 mg) by mouth Daily LATE. 30 Tablet 0 5 Active sennosides (SENOKOT XTRA) 17.2 mg Tablet tablet Take 1 Tablet (17.2 mg) by mouth 2 times daily. 60 Tablet 0 5 Active telmisartan (MICARDIS) 20 mg Tablet Take 1 Tablet (20 mg) by mouth daily. 30 Tablet 0 5 Active methocarbamoL (ROBAXIN) 500 mg tablet Take 500 mg by mouth 3 times daily. 9 Active fluticasone propion-salmet Janice (ADVAIR DISKUS,WIXELA INHUB) 100-50 mcg/dose disk inhaler Take 1 Puff by inhalation 2 times daily. 9 Active pregabalin (LYRICA) 150 mg CapsuleIndicat ions:PVD (peripheral vascular disease) Take 200 mg by mouth every 8 hours . 6 Active Active Problems Problem Noted Date Diagnosed Date Difficulty walking 11/06/2015 Chronic pain in left shoulder 09/12/2015 Anxiety 09/12/2015 Above knee amputation of right lower extremity 1 11-10-14 09/12/2015 Chronic low back pain 09/12/2015 Tobacco abuse 09/08/2015 PVD (peripheral vascular disease) 09/08/2015 Essential hypertension 09/08/2015 Major depressive disorder, recurrent episode, mo derate Resolved Problems Problem Noted Date Diagnosed Date Resolved Date Arterial occlusion 09/08/2015 9 Social History Tobacco Use Types Packs/Day Years Used Date Smoking Tobacco: Every Day Cigarettes Smokeless Tobacco: Never Comments:Quit smoking: curre ntly smokes 0.5 ppd or more 7.9.20 Alcohol Use Standard Drinks/Week Comments No 0 (1 standard drink = 0.6 oz pur e alcohol) Comments Unknown Sex and Gender Information Value Date Recorded Sex Assigned at Not on file Legal Sex Female 10:57 AM MACHINIST TOOL AND DIE Gender Identity Not on file Sexual Orientation Not on file Last Filed Vital Signs Vital Sign Reading Time Taken Comments Blood Pressure 120/80 05/09/2020 1:13 PM CDT Pulse 82 05/09/2020 1:00 PM CDT Temperature 36 C (96.8 F) 11/06/2015 10:19 AM MACHINIST TOOL AND DIE Respiratory Rate 18 09/21/2015 4:17 AM MACHINIST TOOL AND DIE Oxygen Saturation - - Inhaled Oxygen Concentration - - Weight 54.9 kg (121 lb) 01/25/2019 1:00 PM CDT Height 162.6 cm (5' 4 ) 01/25/2019 1:00 PM CDT Body Mass Index 20.77 01/25/2019 1:00 PM CDT Plan of Treatment Health Maintenance Due Date Last Done Comments DTAP/TDAP/TD VACCINES (1 - Tdap) 01/06/1971 BREAST CANCER SCREENING 1992 COLORECTAL SCREENING 01/06/1997 Colorectal Cancer Screening 01/06/1997 FIT-DNA Q 3 years 01/06/1997 FIT/FOBT Q 1 year 01/06/1997 Flex Sig/CT Colonography Q 5 years 01/06/1997 PNEUMOCOCCAL VACCINE 50+ YEARS (1 of 1 - PCV) 01/07/20 02 ZOSTER VACCINE (1 of 2) 01/06/2002 OSTEOPOROSIS SCREENING 01/06/2017 INFLUENZA VACCINE (#1) 2025 RSV VACCINE (60+ or ) (1 - 1-dose 75+ series) 01/06/2027 Medical Devices Implanted Type Area Construction Scheduler Device Identifier Shelf Expiration Date Model / Serial / Lot Sealant Mynxgrip 5fr [id number] - Sna Implanted:Qty: 1 on 09/08/2015 by Mary Ratliff, RT Sealant Left: Groin ACCESS CLOSURE 07/01/2016 [id number] / NA / [id number] Care Teams Land Inspector Relationship Specialty Start Date End Date Katina Kay MD [address] [place] [phone] PCP - General Family Practice 01/25/19
--- OUTSIDE RECORDS SUMMARY | 2025-05-25 11:08 | XMS_ITS | Encounter Summary ---
[facility] Address [address] [place] [address] Care Team Providers Care Cotton Picker Operator Name Role Phone Katina Kay MD Primary Care Provider Encounter Details Date Type Department Care Team (Latest Contact Info) Description 05/29/2002 Outpatient Historical HIS [facility] Abdoul Fraire MD [address] [place] [address] OTHER MALAISE AND FATIGUE (Primary Dx); AFFECTIVE PSYCHOSES NEC; SCREENING-LIPOID DISORDERS Social History Tobacco Use Types Packs/Day Years Used Date Smoking Tobacco: Never Assessed Comments Unknown Sex and Gender Information Value Date Recorded Sex Assigned at Not on file Legal Sex Female 6:07 AM SILICA SPRAY MIXER Gender Identity Not on file Sexual Orientation Not on file documented as of this encounter Plan of Treatment Not on file documented as of this encounter Visit Diagnoses Diagnosis Other malaise and fatigue- Primary Other specified episodic mood disorder Screening for lipoid disorders documented in this encounter Care Teams Cotton Picker Operator Relationship Specialty Start Date End Date Katina Kay MD [address] [place] [phone] PCP - General Family Practice 01/25/19 documented as of this encounter
--- OUTSIDE RECORDS SUMMARY | 2025-05-25 11:08 | XMS_ITS | Encounter Summary ---
Author Organization [facility] Address [address] [place] [address] Care Team Providers Care Top Carrier Name Role Phone Katina Kay MD Primary Care Provider Encounter Details Date Type Department Care Team (Latest Contact Info) Description 12/02/1998 Outpatient Historical HIS [facility] Juan Luis Beltran NO ADDRESS ON FILE Chronic airway obstruction, not elsewhere classified (CMS/HCC) (Primary Dx); Unspecified adjustment reaction Social History Tobacco Use Types Packs/Day Years Used Date Smoking Tobacco: Never Assessed Comments Unknown Sex and Gender Information Value Date Recorded Sex Assigned at Not on file Legal Sex Female 6:07 AM NEWS AGENT Gender Identity Not on file Sexual Orientation Not on file documented as of this encounter Plan of Treatment Not on file documented as of this encounter Visit Diagnoses Diagnosis Chronic airway obstruction, not elsewhere classified (CMS/HCC)- Primary Chronic airway obstruction, not elsewhere classified Unspecified adjustment reaction documented in this encounter Care Teams Top Carrier Relationship Specialty Start Date End Date Katina Kay MD [address] [place] [address] PCP - General Family Practice 01/25/19 documented as of this encounter
--- OUTSIDE RECORDS SUMMARY | 2025-05-25 11:08 | XMS_ITS | Encounter Summary ---
Author Organization [facility] Address [address] [place] [address] Care Team Providers Care Cold Rolling Supervisor Name Role Phone Katina Kay MD Primary Care Provider Encounter Details Date Type Department Care Team (Latest Contact Info) Description 08/07/2002 Outpatient Historical HIS [facility] Abdoul Fraire MD [address] [place] [address] MENOPAUSAL DISORDER NEC (Primary Dx) Social History Tobacco Use Types Packs/Day Years Used Date Smoking Tobacco: Never Assessed Comments Unknown Sex and Gender Information Value Date Recorded Sex Assigned at Not on file Legal Sex Female 6:07 AM OPERATIONS MANAGEMENT PROFESSIONALS Gender Identity Not on file Sexual Orientation Not on file documented as of this encounter Plan of Treatment Not on file documented as of this encounter Visit Diagnoses Diagnosis Other specified menopausal and postmenopausal disorder- Primary documented in this encounter Care Teams Cold Rolling Supervisor Relationship Specialty Start Date End Date Katina Kay MD [address] [place] [phone] PCP - General Family Practice 01/25/19 documented as of this encounter
--- OUTSIDE RECORDS SUMMARY | 2025-05-25 11:08 | XMS_ITS | Encounter Summary ---
Author Organization [facility] Address [address] [place] [address] Care Team Providers Care Clinical Secretary Name Role Phone Katina Kay MD Primary Care Provider Encounter Details Date Type Department Care Team (Latest Contact Info) Description 07/07/2002 Outpatient Historical HIS [facility] Abdoul Fraire MD [address] [place] [address] FEMALE CLIMACTERIC STATE (Primary Dx); TOBACCO USE DISORDER; Other Counseling Social History Tobacco Use Types Packs/Day Years Used Date Smoking Tobacco: Never Assessed Comments Unknown Sex and Gender Information Value Date Recorded Sex Assigned at Not on file Legal Sex Female 6:07 AM HEAD INSPECTOR AND CENTER MARKER Gender Identity Not on file Sexual Orientation Not on file documented as of this encounter Plan of Treatment Not on file documented as of this encounter Visit Diagnoses Diagnosis Symptomatic menopausal or female climacteric states- Primary Tobacco use disorder Other Counseling Other specified counseling documented in this encounter Care Teams Clinical Secretary Relationship Specialty Start Date End Date Katina Kay MD [address] [place] [address] PCP - General Family Practice 01/25/19 documented as of this encounter
--- NOTE | 2025-05-25 11:12 | ED_ITS ---
HPI - SOB/Dyspnea 2 General: Chief Complaint: Chest Pain Stated Complaint: SOB Time Seen by Provider: 05/25/25 10:54 History of Present Illness: HPI Narrative: 75-year-old female presents emergency ro om with chest pressure shortness of breath some mild dysuria and urgency for the last couple of days as well. Patient states she has sudden chest heaviness. It is persistent she has chronic shortness of breath she supposed to be on oxygen 2 L by nasal cannula at home but does not use regularly. She is given aspirin and albuterol treatment in the field patient continues to smoke daily she has a persistent nonproductive cough no known history of coronary artery disease but she does have peripheral vascular disease. Because of her complications of her peripheral vascular disease she had a right [id number] amputation noted. No recent fever sweats chills Associated symptoms: Reports chest congestion, chest pain and orthopnea; Deny abdominal pain or fever(s) Related Data Home Medications ?Medication ?Instructions ?Recorded ?Confirmed aspirin 81 mg tablet,delayed 81 mg PO DAILY 12/21/19 0 05/25/25 release levothyroxine 88 mcg tablet 88 mcg PO DAILY 12/21/19 0 05/25/25 metoprolol succinate 50 mg capsule 50 mg PO DAILY 12/0306/18/22 sprinkle, ext. release 24 hr cholecalciferol (vitamin D3) 25 2,000 unit PO QPM 02/1905/25/25 mcg (1,000 unit) capsule loratadine 10 mg tablet (Allergy 10 mg PO DAILY 06/18/22 Relief (loratadine)) albuterol sulfate 90 mcg/actuation 2 puff inhalation Q 6H PRN 05/25/25 05/25/25 aerosol inhaler Shortness Of Breath Or Wheez ing atorvastatin 40 mg tablet 40 mg PO QPM 05/25/25 fluticasone furoate 200 inhalation 05/25/25 mcg-vilanterol 25 mcg/dose inhalation powder omeprazole 40 mg capsule,delayed mg 05/25/25 release telmisartan 80 mg tablet mg 05/25/25 Previous Rx's ?Medication ?Instructions ?Recorded sertraline 25 mg tablet (Zoloft) 25 mg PO DAILY #30 ta bs 07/25/21 methocarbamol 500 mg tablet 500 mg PO TID 30 days #90 tabs 11/20/21 pregabalin 200 mg capsule (Lyrica) 200 mg PO TID 30 da ys #90 caps 11/20/21 clonazepam 0.5 mg tablet (Klonopin) 0.25 mg (1/2 x 0.5 mg) PO DAILY 11/27/21 PRN anxiety #10 tabs Allergies Allergy/AdvReac Type Severity Reaction Status Date / Time codeine AdvReac Intermediate N & V Verified 06/18/22 09:30 gabapentin AdvReac Intermediate Red spots Verified 06/18/22 09:30 on legs naproxen AdvReac Intermediate Nausea Verified 06/18/22 09:30 prochlorperazine (From AdvReac Intermediate Nerve Verified 06/18/22 09:30 Compazine) reaction bodywide Review of Systems 2 Const: Denies: fever(s) or chills Card: Reports: chest pain, dyspnea on exertion and orthopnea Resp: Reports: dyspnea, non-productive cough, wheezing and chest congestion GI: Denies: abdominal pain : Denies: dysuria, urinary frequency or urinary urgency Musc: Denies: neck pain or back pain Skin/Breast: Denies: rash PFSH ED 2 PFSH: Medical History Arthropathy of lumbar facet joint Chronic neck and back pain DDD (degenerative disc disease), lumbar Other intervertebral disc degeneration, lumbosacral region Acute lumbar radiculopathy Pain in unspecified shoulder Encounter for long-term opiate analgesic use Surgical History S/P AKA (above knee amputation) right Hx of hysterectomy, total History of orthopedic surgery Family History Other Hypertension Social History Smoking and tobacco/nicotine status: current every day tobacco/nicotine user cigarettes Packs smoked per day: 0.5 Years cigarettes smoked: 50 Quit status (tobacco/nicotine): has tried quititng Number of times tried to quit tobacco: 25 Second hand smoke exposure: Yes Alcohol intake: never Substance/Drug Use: never Physical Exam 2 Const: GENERAL APPEARANCE: cooperative ORIENTATION/CONSCIOUSNESS: Yes awake, Yes oriented to person, Yes oriented to place and Yes oriented to time HENMT: COMMON NORMALS: normocephalic, atraumatic and hearing grossly normal bilaterally HEAD & SCALP: normocephalic and atraumatic Resp: COMMON NORMALS: normal respiratory effort, No retractions and No use of accessory muscles EFFORT & INSPECTION: Yes tachypneic, Yes pursed lip breathing and Yes uses accessory muscles AUSCULTATION: rhonchi lower bilaterally and wheezes Cardio: COMMON NORMALS: regular rate, regular rhythm and No murmurs present (Cardio) RATE: regular rate RHYTHM: regular rhythm GI: COMMON NORMALS: Soft to palpation and No hepatosplenomegaly present A USCULTATION: Yes normoactive bowel sounds PALPATION: Yes Soft to palpation, No Tenderness to palpation present (GI), No Guarding due to palpation present (GI) and Yes No hepatosplenomegaly present Extremity: COMMON NORMALS: normal to inspection, capillary refill normal, no clubbing, cyanosis or edema, no calf tenderness and no pedal edema Neuro: SENSORIUM/ORIENTATION: Yes oriented to person, Yes oriented to place and Yes oriented to time Skin: COMMON NORMALS: no rashes or lesions noted GENERAL SKIN EXAM: no rashes or lesions noted Course 2 Vital Signs: Vital signs: Vital Signs Temperature 98.3 F 05/25/25 10:53 Pulse Rate 67 05/25/25 15:08 Respiratory Rate 15 05/25/25 14:09 Blood Pressure 141/71 05/25/25 15:08 Pulse Oximetry 94 05/25/25 15:08 Oxygen Delivery Me thod Nasal Cannula 05/25/25 15:08 Oxygen Flow Rate 2 05/25/25 15:08 MDM - SOB/Dyspnea Medical Decision Making Cardiac enzymes and EKG negative will admit for COPD exacerbation not usually using oxygen now requiring 2 L improved with nebulizer. Discussed with the hospitalist orders written no evidence of pneumonia pneumothorax. Do not believe clinically she appears to have a PE. No signs of dissection or aneurysm. Medical Records I reviewed the patient's medical records. Lab Data I reviewed the patient's lab results. 05/25/25 10:35 05/25/25 10:35 Labs/Radiology: Radiology Impressions Chest X-Ray 05/25/25 10:55 Impression: Hyperinflation and atherosclerosis. Laboratory Results WBC 11.80 10^3/uL (3.29-11.43) H 05/25/25 10:35 RBC 5.28 10^6/uL (3.85-5.65) 05/25/25 10:35 Hgb 15.50 g/dL (11.27-16.99) 05/25/25 10:35 Hct 48.2 % (36-47) H 05/25/25 10:35 MCV 91.3 fl (85-98) 05/25/25 10:35 MCH 29.4 pg (27-33) 05/25/25 10:35 MCHC 32.2 g/dL (30-55) 05/25/25 10:35 RDW 14.2 % (12.1-15.1) 05/25/25 10:35 Plt Count 176 10^3/cmm (157-399) 05/25/25 10:35 MPV 12.3 fL (7.4-10.4) H 05/25/25 10:35 Neut % (Auto) 72.7 % 05/25/25 10:35 Lymph % (Auto) 15.5 % 05/25/25 10:35 [place] % (Auto) 10.2 % 05/25/25 10:35 Eos % (Auto) 0.6 % 05/25/25 10:35 Baso % (Auto) 0.5 % 05/25/25 10:35 Neut # (Auto) 8.58 10^3/uL (1.8-7.7) H 05/25/25 10:35 Lymph # (Auto) 1.8 10^3/uL (0.8-4.8) 05/25/25 10:35 [place] # (Auto) 1.2 10^3/uL (0.2-0.9) H 05/25/25 10:35 Eos # (Auto) 0.1 10^3/uL (0.0-0.8) 05/25/25 10:35 Baso # (Auto) 0.1 10^3/uL (0.0-0.1) 05/25/25 10:35 Nucleated RBC % (auto) 0 % 05/25/25 10:35 Nucleated RBCs # 0.0 /100WBC 05/25/25 10:35 Specimen Type Arterial 05/25/25 11:09 Sample Site Radial, left 05/25/25 11:09 ABG pH 7.43 (7.35-7.45) 05/25/25 11:09 ABG pCO2 49.3 mmHg (35-45) H 05/25/25 11:09 ABG pO2 48.4 mmHg (80.0-100.0) L 05/25/25 11:09 ABG PO2/FiO2 Ratio 230 05/25/25 11:09 ABG HCO3 32.3 mmol/L (22-26) H 05/25/25 11:09 ABG Base Excess 6.5 mmol/L (-2.0-2.0) H 05/25/25 11:09 Alen Test Pos 05/25/25 11:09 Hematocrit 46.8 % (37-47) 05/25/25 11:09 Hgb O2 Saturation 82.2 % (95-100) L 05/25/25 11:09 Carboxyhemoglobin 4.6 %THgb (0.4-20.1) 05/25/25 11:09 Methemoglobin 1.1 % (0.4-1.5) 05/25/25 11:09 Total Hemoglobin 15.3 g/dL (12-16) 05/25/25 11:09 O2 Delivery Device Room air 05/25/25 11:09 FiO2 21.0 % 05/25/25 11:09 Central Office Supervisor ID Cak 05/25/25 11:09 Sodium 132 mmol/L (136-145) L 05/25/25 10:35 Potassium 4.7 mmol/L (3.5-5.1) 05/25/25 10:35 Chloride 88 mmol/L (98-107) L 05/25/25 10:35 Carbon Dioxide 34 mmol/L (22-29) H 05/25/25 10:35 Anion Gap 14.7 (5-19) 05/25/25 10:35 BUN 12 mg/dL (8-23) 05/25/25 10:35 Creatinine 0.6 mg/dL (0.5-0.9) 05/25/25 10:35 GFR Calculation Not Reportable 05/25/25 10:35 Glucose 96 mg/dL (65-115) 05/25/25 10:35 Calculated Osmolality 274 mOsm/kg (285-295) L 05/25/25 10:35 Calcium 9.4 mg/dL (8.5-10.5) 05/25/25 10:35 Total Bilirubin 1.0 mg/dL (0.15-1.2) 05/25/25 10:35 AST 37 U/L (0-32) H 05/25/25 10:35 ALT 22 U/L (0-33) 05/25/25 10:35 Alkaline Phosphatase 105 U/L (35-105) 05/25/25 10:35 Troponin T Baseline 9 ng/L (0-10) 05/25/25 10:35 Troponin T 120 Minute 7.58 ng/L (0-10) 05/25/25 13:11 Delta Troponin T -1.42 ABS# (0-10) L 05/25/25 13:11 Total Protein 6.8 g/dL (6.6-8.7) 05/25/25 10:35 Albumin 4.0 g/dL (3.5-5.2) 05/25/25 10:35 Globulin 2.8 g/dL (1.3-4.6) 05/25/25 10:35 Urine Color Yellow (Yellow) 05/25/25 11:12 Urine Appearance Clear (CLEAR) 05/25/25 11:12 Urine pH 7.0 (5-7) 05/25/25 11:12 Ur Specific [place] 1.009 (1.005-1.030) 05/25/25 11:12 Urine Protein Negative (Negative) 05/25/25 11:12 Urine Glucose (UA) Negative (Normal) 05/25/25 11:12 Urine Ketones Negative (Negative) 05/25/25 11:12 Urine Blood Negative (Negative) 05/25/25 11:12 Urine Nitrate Negative (Negative) 05/25/25 11:12 Urine Bilirubin Negative (Negative) 05/25/25 11:12 Urine Urobilinogen 1.0 mg/dL (Negative) 05/25/25 11:12 Ur Leukocyte Esterase Negative (Negative) 05/25/25 11:12 Urine RBC 0-2 /hpf (0-2) 05/25/25 11:12 Urine WBC 0-5 /hpf (0-5) 05/25/25 11:12 Ur Squamous Epith Cells 0-5 /hpf (0-5) 05/25/25 11:12 Amorphous Sediment Not Reportable 05/25/25 11:12 Urine Bacteria None seen /hpf (NONE) 05/25/25 11:12 Hyaline Casts 0-4 /lpf H 05/25/25 11:12 Influenza A (PCR) Negative (Negative) 05/25/25 11:19 Influenza Type B (PCR) Negative (Negative) 05/25/25 11:19 RSV (PCR) Negative (Negative) 05/25/25 11:19 SARS-CoV-2 (PCR) Negative (Negative) 05/25/25 11:19 All radiology interpretation(s) finalized by discharge Discharge Plan Discharge Patient Disposition: Placed in Observation Clinical Impression: COPD exacerbation, COPD (chronic obstructive pulmonary disease), Chest pain Coding Level of Care Code ED Clinical Writer for Ani Ledezma
[2025-05-25 11:20] LABS: ABG PCO2 49.3 mmHg (35-45); ABG PH Result 7.43 (7.35-7.45); Arterial Blood Gas Hematocrit 46.8 % (37-47); Blood Gas Allen Test Pos; Blood Gas Operator Identificat CAK; Blood Gas Sample Site Radial, left; Blood Gas Sample Type Arterial; Carboxyhemoglobin 4.6 %THgb (0.4-20.1); HCO3 ABG 32.3 mmol/L (22-26); Methemoglobin 1.1 % (0.4-1.5); PO2 ABG 48.4 mmHg (80.0-100.0); PO2 FiO2 Ratio Arterial Blood 230
[2025-05-25] MEDS: methylPREDNISolone sod succ 125 mg/2 mL INJ IV (11:22)
[2025-05-25 11:30] LABS: Glucose Urine UA Negative (Normal); Nitrate Urine Negative (Negative); Specific Gravity, Urine 1.009 (1.005-1.030)
[2025-05-25 11:31] LABS: Alanine Aminotransferase 22 U/L (0-33); Albumin Level 4.0 g/dL (3.5-5.2); Alkaline Phosphatase 105 U/L (35-105); Anion Gap 14.7 (5-19); Aspartate Amino Transferase 37 U/L (0-32); Blood Urea Nitrogen 12 mg/dL (8-23); Calcium 9.4 mg/dL (8.5-10.5); Carbon Dioxide 34 mmol/L (22-29); Chloride 88 mmol/L (98-107); Creatinine Clr Calc Pharmacy 47.6596; Globulin 2.8 g/dL (1.3-4.6); Glucose 96 mg/dL (65-115); Osmolality Calculated 274 mOsm/kg (285-295); Potassium 4.7 mmol/L (3.5-5.1); Sodium 132 mmol/L (136-145); Total Protein 6.8 g/dL (6.6-8.7)
[2025-05-25 11:33] LABS: Troponin(5th) Baseline 9 ng/L (0-10)
[2025-05-25 11:35] LABS: Add Urine Microscopic? YES
[2025-05-25 12:02] LABS: Respiratory Syncytial Virus Ce NEGATIVE (Negative); SARS-CoV-2 PCR NEGATIVE (Negative)
--- NOTE | 2025-05-25 12:38 | ECG_ITS ---
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 Measurements Intervals [place] Rate: 60 P: 73 [place]: 168 QRS: 57 QRSD: 70 T: 79 QT: 384 QTc: 386 Interpretive Statements SINUS RHYTHM POSSIBLE LEFT ATRIAL ENLARGEMENT [-0.1mV P-WAVE IN V1/V2] Compared to ECG 05/23/2022 23:30:45 Myocardial infarct finding no longer present Electronically Signed On 05-26-2025 08:46:23 CDT by Leno Elliott M.D. [email or web address] [id number]
[2025-05-25 13:36] LABS: Troponin 5 2HR 7.58 ng/L (0-10)
[2025-05-25 13:39] LABS: Troponin 5 2HR Delta -1.42 ABS# (0-10)
--- NOTE | 2025-05-25 15:49 | PM.HP ---
Providers/Chief Complaint Primary Care Provider: Trey Hensley MD Chief Complaint: SOB History of Present Illness Maryana Patterson is a 75 year old female with a past medical history of COPD, peripheral vascular disease, status post right above-knee amputation, hyperlipidemia, hypertension, who presents [facility] for shortness of breath and chest pain For chest pain she reports substernal chest pain, she has had 2 episodes within the last 48 hours like someone sitting on her chest, radiating to her left arm, description of shortness of breath, no diaphoresis She reports shortness of breath, shortness of breath with exertion, no nausea, no vomiting, no abdominal pain, does have a nonproductive cough Review of Systems Card: Reports: chest pain Resp: Reports: dyspnea and non-productive cough GI: Denies: abdominal pain Medications/Allergies Home Medications ?Medication ?Instructions ?Recorded ?Confirmed ?Last Taken ?Type aspirin 81 mg tablet,delayed 81 mg PO DAILY 12/21/19 05/25/25 Unknown History release levothyroxine 88 mcg tablet 88 mcg PO DAILY 12/21/19 05/25/25 05/25/25 06:00 History metoprolol succinate 50 mg capsule 50 mg PO DAILY 12/21/19 06/18/22 Unknown History sprinkle, ext. release 24 hr cholecalciferol (vitamin D3) 25 2,000 unit PO QPM 11/04/20 05/25/25 05/24/25 18:00 History mcg (1,000 unit) capsule loratadine 10 mg tablet (Allergy 10 mg PO DAILY 06/02/21 06/18/22 Unknown History Relief (loratadine)) sertraline 25 mg tablet (Zoloft) 25 mg PO DAILY #30 tabs 07/25/21 06/18/22 Unknown Rx methocarbamol 500 mg tablet 500 mg PO TID 30 days #90 tabs 11/20/21 06/18/22 Unknown Rx pregabalin 200 mg capsule (Lyrica) 200 mg PO TID 30 days #90 caps 11/20/21 06/18/22 Unknown Rx clonazepam 0.5 mg tablet (Klonopin) 0.25 mg (1/2 x 0.5 mg) PO DAILY 11/27/21 05/25/25 05/25/25 Rx PRN anxiety #10 tabs albuterol sulfate 90 mcg/actuation 2 puff inhalation Q6H PRN 05/25/25 05/25/25 Unknown History aerosol inhaler Shortness Of Breath Or Wheezing atorvastatin 40 mg tablet 40 mg PO QPM 05/25/25 05/25/25 05/24/25 18:00 History fluticasone furoate 200 inhalation 05/25/25 Unknown History mcg-vilanterol 25 mcg/dose inhalation powder omeprazole 40 mg capsule,delayed mg 05/25/25 Unknown History release telmisartan 80 mg tablet mg 05/25/25 Unknown History Allergies Allergy/AdvReac Type Severity Reaction Status Date / Time codeine AdvReac Intermediate N & V Verified 06/18/22 09:30 gabapentin AdvReac Intermediate Red spots Verified 06/18/22 09:30 on legs naproxen AdvReac Intermediate Nausea Verified 06/18/22 09:30 prochlorperazine (From AdvReac Intermediate Nerve Verified 06/18/22 09:30 Compazine) reaction bodywide PFSH Acute PFSH: Medical History Arthropathy of lumbar facet joint Chronic neck and back pain DDD (degenerative disc disease), lumbar Other intervertebral disc degeneration, lumbosacral region Acute lumbar radiculopathy Pain in unspecified shoulder Encounter for long-term opiate analgesic use Surgical History S/P AKA (above knee amputation) right Hx of hysterectomy, total History of orthopedic surgery Family History Other Hypertension Social History Smoking and tobacco/nicotine status: current every day tobacco/nicotine user cigarettes Packs smoked per day: 0.5 Years cigarettes smoked: 50 Quit status (tobacco/nicotine): has tried quititng Number of times tried to quit tobacco: 25 Second hand smoke exposure: Yes Alcohol intake: never Substance/Drug Use: never Vitals/I&O/Wt Last Vital Signs Temp 98.3 F 05/25/25 10:53 Pulse 67 05/25/25 15:08 Resp 15 05/25/25 14:09 BP 141/71 05/25/25 15:08 Pulse Ox 94 05/25/25 15:08 O2 Del Method Nasal Cannula 05/25/25 15:08 O2 Flow Rate 2 05/25/25 15:08 Weight last 48 hrs Weight 45.359 kg Physical Exam Const: COMMON NORMALS: no acute distress and patient oriented x3 HENMT: COMMON NORMALS: normocephalic HEAD & SCALP: normocephalic Resp: COMMON NORMALS: normal respiratory effort, No retractions, No use of accessory muscles and clear to auscultation bilaterally AUSCULTATION: clear to auscultation bilaterally Cardio: COMMON NORMALS: regular rate, regular rhythm, S1 normal heart sound present and S2 normal heart sound present RATE: regular rate RHYTHM: regular rhythm HEART SOUNDS: S1 normal heart sound present and S2 normal heart sound present GI: COMMON NORMALS: Normal to inspection, nondistended, normoactive bowel sounds present, Soft to palpation and non-tender Extremity: COMMON NORMALS: no calf tenderness and no pedal edema Neuro: COMMON NORMALS: patient oriented x3, CN's II-XII intact bilaterally and moves all extremities Psych: COMMON NORMALS: mental status grossly normal Data 05/25/25 10:35 05/25/25 10:35 A&P Assessment and plan 1. Chest pain: 2. COPD exacerbation: Plan: Chest pain - Serial EKGs, serial troponins, telemetry monitoring - Aspirin, statin - Cardiac echo COPD exacerbation - Solu-Medrol 40 mg IV every 8 hours - DuoNeb - Budesonide - Doxycycline Hypothyroidism resume levothyroxine Full code Lovenox for DVT prophylaxis PDMP PDMP Reviewed: Last Reviewed 05/25/25 15:42 by Dustin Lamb MD Attestations Medical Necessity Statement*: Patient requires hospitalization, outpatient observation, for chest pain, shortness of breath Diagnoses Chest pain R07.9 COPD exacerbation J44.1
[2025-05-25 16:18] LABS: NT Pro B Type Natriuretic Pept 2198 pg/mL (0-125)
--- NOTE | 2025-05-25 16:56 | ECG_ITS ---
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 Measurements Intervals [place] Rate: 54 P: 81 [place]: 175 QRS: 87 QRSD: 82 T: 82 QT: 406 QTc: 385 Interpretive Statements SINUS BRADYCARDIA WITH SINUS ARRHYTHMIA POSSIBLE LEFT ATRIAL ENLARGEMENT [-0.1mV P-WAVE IN V1/V2] Compared to ECG 05/25/2025 12:38:08 Sinus rhythm no longer present Electronically Signed On 05-26-2025 08:45:53 CDT by Leno Elliott M.D. [email or web address] [id number]
[2025-05-25] MEDS: pantoprazole 40 mg SDV IVP (17:09)
[2025-05-25] MEDS: doxycycline 100 MG in sodium chloride 0.9% (plus) 100 ML IV (17:10)
[2025-05-25 17:23] LABS: Cholesterol 139 mg/dL (0-200); HDL Cholesterol 71 mg/dL (60-100); Thyroid Stimulating Hormone 3.98 uIU/mL (0.27-4.20); Triglycerides 100 mg/dL (0-150)
[2025-05-25 17:26] LABS: Troponin 5 6HR < 6.0 ng/L (0-10)
[2025-05-25 17:28] LABS: Troponin 5 6HR Delta -3 ng/L (0-12)
[2025-05-25 17:43] LABS: Estmated Average Glucose 123; Hemoglobin A1C 5.9 % (4.0-6.0)
[2025-05-26] VITALS (13 sets, daily range): BP systolic 96–149; BP diastolic 55–75; PULSE 60–77; RESP 16–18; TEMP 36.4–36.6; O2SAT 90–96
[2025-05-26 02:24] LABS: Hematocrit 39.7 % (36-47); Hemoglobin 13.00 g/dL (11.27-16.99); Mean Corpuscular HGB Conc 32.7 g/dL (30-55); Mean Corpuscular Hemoglobin 29.5 pg (27-33); Mean Corpuscular Volume 90.2 fl (85-98); Nucleated Red Blood Cells % 0 %; Platelet Count 143 10^3/cmm (157-399); Red Blood Count 4.40 10^6/uL (3.85-5.65); White Blood Count 8.44 10^3/uL (3.29-11.43)
[2025-05-26 02:45] LABS: Alanine Aminotransferase 19 U/L (0-33); Albumin Level 3.2 g/dL (3.5-5.2); Alkaline Phosphatase 102 U/L (35-105); Anion Gap 13.4 (5-19); Aspartate Amino Transferase 35 U/L (0-32); Blood Urea Nitrogen 16 mg/dL (8-23); Calcium 8.4 mg/dL (8.5-10.5); Carbon Dioxide 30 mmol/L (22-29); Chloride 92 mmol/L (98-107); Creatinine Clr Calc Pharmacy 47.6058; Globulin 2.8 g/dL (1.3-4.6); Glucose 127 mg/dL (65-115); Osmolality Calculated 275 mOsm/kg (285-295); Potassium 4.4 mmol/L (3.5-5.1); Sodium 131 mmol/L (136-145); Total Protein 6.0 g/dL (6.6-8.7)
[2025-05-26] MEDS: doxycycline 100 MG in sodium chloride 0.9% (plus) 100 ML IV ×2 (04:16→15:34)
[2025-05-26] MEDS: methylPREDNISolone sod succ 40 mg/mL INJ IVP ×3 (06:23→21:13)
[2025-05-26] MEDS: FUROsemide 10 mg/mL SDV 4mL 40 MG IVP (08:10)
--- NOTE | 2025-05-26 12:18 | P.PN_ITS ---
Subjective 2 Subjective: Patient was seen this morning, currently alert oriented x 3, following all commands, no chest pain, no shortness of breath Vitals/I&O/Wt Last Vital Signs Temp 97.6 F 05/26/25 11:39 Pulse 67 05/26/25 12:04 Resp 18 05/26/25 11:47 BP 99/60 05/26/25 11:39 Pulse Ox 95 05/26/25 11:47 O2 Del Method Nasal Cannula 05/26/25 11:47 O2 Flow Rate 2 05/26/25 11:47 05/25/25 05/26/25 05/26/25 22:59 06:59 14:59 Intake Total 100 / 100 100 / 200 240 / 240 Output Total 500 / 500 900 / 900 Balance 100 / 100 -400 / -300 -660 / -660 Weight last 48 hrs Weight 45.087 kg Weight 45.223 kg Weight 45.359 kg Physical Exam 2 Const: COMMON NORMALS: no acute distress and patient oriented x3 Resp: COMMON NORMALS: normal respiratory effort, No retractions and No use of accessory muscles AUSCULTATION: wheezes Cardio: COMMON NORMALS: regular rate, regular rhythm, S1 normal heart sound present and S2 normal heart sound present RATE: regular rate RHYTHM: r egular rhythm HEART SOUNDS: S1 normal heart sound present and S2 normal heart sound present GI: COMMON NORMALS: Normal to inspection, nondistended, normoactive bowel sounds present and non-tender Extremity: COMMON NORMALS: no pedal edema Neuro: COMMON NORMALS: patient oriented x3 Psych: COMMON NORMALS: mental status grossly normal Data 05/26/25 01:45 05/26/25 01:45 A&P Assessment and plan 1. Chest pain: 2. COPD exacerbation: Plan: Chest pain - Serial EKGs, serial troponins, telemetry monitoring - Aspirin, statin - Cardiac echo pending COPD exacerbation - Solu-Medrol 40 mg IV every 8 hours - DuoNeb - Budesonide - Doxycycline Hypothyroidism resume levothyroxine Peripheral vascular disease - Arterial ultrasounds Full code Lovenox for DVT prophylaxis PDMP PDMP Reviewed: Last Reviewed 05/25/25 15:42 by Dustin Lamb MD Attestations 2 Medical Necessity Statement*: Patient requires hospitalization for chest pain, COPD Diagnoses Chest pain R07.9 COPD exacerbation J44.1
[2025-05-26] MEDS: pantoprazole 40 mg SDV IVP (15:34)
--- NOTE | 2025-05-26 15:43 | USCV_ITS ---
Maryana Patterson Age: 75 Gender: F : 1950 Exam Date: 05/26/2025 10:18 Ordering Phys: Dustin Lamb MD Technologist: Liam Echevarria Exam Location: [facility] [place] Indication: sob BP: 149 / 75 HR: 62 Rhythm: Other Technical Quality: Adequate MEASUREMENTS (Male / Female) Normal Values 2D ECHO LV Diastolic Diameter PLAX 3.9 cm 4.2 - 5.9 / 3.9 - 5.3 cm IVS Diastolic Thickness 0.5 cm 0.6 - 1.0 / 0.6 - 0.9 cm IVS Systolic Thickness 0.6 cm LVPW Diastolic Thickness 0.9 cm 0.6 - 1.0 / 0.6 - 0.9 cm LVPW Systolic Thickness 1.1 cm LVOT Diameter 2.0 cm LV Ejection Fraction 2D Teich 62.1 % LV Ejection Fraction MOD 4C 72.1 % LV Ejection Fraction MOD 2C 75.5 % LV Ejection Fraction 2C AL 76.2 % LA Diameter 3.2 cm RA Systolic Volume 4C AL 28.1 ml RA Systolic Volume 4C MOD 28.0 ml LA Sys Volume AL 26.1 cm cubed LA Sys Volume Index AL 18.7 cm cubed/m squared Aorta at Sinotubular Diameter 2.3 cm IVC Diameter 1.2 cm M-MODE LA Ao Ratio MM 1.8 AV Cusp Separation MM 1.4 cm DOPPLER AV Peak Velocity 127.0 cm/s LVOT Peak Velocity 95.0 cm/s AV Area Cont Eq vti 2.3 cm squared AV Area Cont Eq pk 2.4 cm squared MV Peak Velocity 82.0 cm/s MV Area PHT 5.5 cm squared Mitral E to A Ratio 1.0 TR Peak Velocity 181.0 cm/s TR Peak Gradient 13.1 mmHg TR Mean Velocity 160.0 cm/s TR Mean Gradient 10.4 mmHg TR Velocity Time Integral 53.9 cm PV Peak Velocity 96.0 cm/s RV Ejection Time 0.3 s FINDINGS Left Ventricle Normal left ventricular size, systolic function and wall thickness, with no regional wall motion abnormalities. EF 72%. Normal diastolic function. Right Ventricle The right ventricle is normal in size and function. Right Atrium The right atrium is normal in size. Left Atrium The left atrium is normal in size. Mitral Valve Mild mitral regurgitation Aortic Valve Normal structure and function of the aortic valve. Tricuspid Valve Structurally normal tricuspid valve without stenosis or regurgitation. Pulmonary artery systolic pressure is normal. Pulmonic Valve Normal pulmonic valve. Pericardium Normal pericardium without effusion. Aorta Aortic root and ascending aorta size.Normal ascending aorta dimension. IVC The inferior vena cava appears normal. CONCLUSIONS 1. Normal LV and RV size and systolic function. LVEF 72% 2. No significant valvular abnormalities. 3. Normal pulmonary pressure Joey Friend MD (Electronically Signed) Final Date: 26 May 2025 14:07 S
--- NOTE | 2025-05-26 18:13 | USR_ITS ---
PROCEDURE INFORMATION: Exam: US Duplex Left Lower Extremity Arteries Or Arterial Bypass Grafts Exam date and time: 05/26/2025 9:21 AM Age: 75 years old Clinical indication: Other: Cool; Additional info: Cool, has dp/pt pulses TECHNIQUE: Imaging protocol: Left Real-time duplex scan of the arteries or arterial bypass grafts of the left lower extremity with 2-D martell scale, color Doppler flow and spectral waveform analysis. Images documented and saved. COMPARISON: CT abdomen pelvis w con* [id number] 03/21/2019 1:34 PM FINDINGS: Left common femoral artery: No occlusion or significant stenosis. Normal waveform. Left superficial femoral artery: No occlusion or significant stenosis. Normal waveform. Left popliteal artery: No occlusion or significant stenosis. Normal waveform. Left calf/foot arteries: No occlusion or significant stenosis in the visualized arteries. Normal waveforms. Dorsalis pedis artery is patent. Other findings: Left PACO: 0.76. US/CV arterial duplex [facility] [id number] IMPRESSION: Moderate peripheral arterial disease with PACO of 0.76. Preserved triphasic flow in the visualized arteries.
[2025-05-27] VITALS (8 sets, daily range): BP systolic 96–134; BP diastolic 61–71; PULSE 60–77; RESP 16–19; TEMP 36.2–36.4; O2SAT 92–96
[2025-05-27] MEDS: doxycycline 100 MG in sodium chloride 0.9% (plus) 100 ML IV (03:35)
[2025-05-27 05:17] LABS: Hematocrit 41.4 % (36-47); Hemoglobin 13.30 g/dL (11.27-16.99); Mean Corpuscular HGB Conc 32.1 g/dL (30-55); Mean Corpuscular Hemoglobin 30.1 pg (27-33); Mean Corpuscular Volume 93.7 fl (85-98); Nucleated Red Blood Cells % 0 %; Platelet Count 165 10^3/cmm (157-399); Red Blood Count 4.42 10^6/uL (3.85-5.65); White Blood Count 16.31 10^3/uL (3.29-11.43)
[2025-05-27 05:37] LABS: Alanine Aminotransferase 21 U/L (0-33); Albumin Level 3.4 g/dL (3.5-5.2); Alkaline Phosphatase 91 U/L (35-105); Anion Gap 15.1 (5-19); Aspartate Amino Transferase 28 U/L (0-32); Blood Urea Nitrogen 28 mg/dL (8-23); Calcium 9.1 mg/dL (8.5-10.5); Carbon Dioxide 31 mmol/L (22-29); Chloride 91 mmol/L (98-107); Creatinine Clr Calc Pharmacy 47.9646; Globulin 2.9 g/dL (1.3-4.6); Glucose 137 mg/dL (65-115); Osmolality Calculated 284 mOsm/kg (285-295); Potassium 4.1 mmol/L (3.5-5.1); Sodium 133 mmol/L (136-145); Total Protein 6.3 g/dL (6.6-8.7)
[2025-05-27] MEDS: methylPREDNISolone sod succ 40 mg/mL INJ IVP (05:58)
--- NOTE | 2025-05-27 09:35 | P.DS_ITS ---
Discharge Providers Date of Admission: 05/26/25 16:02 Date of Discharge: May 27, 2025 Attending Provider at Admission: Dustin Lamb MD Attending Provider at Discharge: Dustin Lamb MD Primary Care Provider: Trey Hensley MD Diagnoses at Discharge Discharge Diagnosis 1. Chest pain: 2. COPD exacerbation: Reason for Visit Reason for Visit: SOB Hospital Course Hospital Course Maryana Patterson is a 75 year old female with a past medical history of COPD, peripheral vascular disease, status post right above-knee amputation, hyperlipidemia, hypertension, who presents [facility] for shortness of breath and chest pain For chest pain she reports substernal chest pain, she has had 2 episodes within the last 48 hours like someone sitting on her chest, radiating to her left arm, description of shortness of breath, no diaphoresis She reports shortness of breath, shortness of breath with exertion, no nausea, no vomiting, no abdominal pain, does have a nonproductive cough Patient presented to [facility] for chest pain -Serial EKGs, serial troponins, telemetry monitoring - No significant delta troponin, EKG no acute ST-T wave changes -Cardiac echo CONCLUSIONS 1. Normal LV and RV size and systolic function. LVEF 72% 2. No significant valvular abnormalities. 3. Normal pulmonary pressure - No recurrent chest pain - Patient adamantly declines inpatient stay for stress testing, understands morbidity and mortality - Will discharge with outpatient follow-up with cardiology for stress testing - Discharged on aspirin, statin, beta-renard - If any recurrent chest pain go to the emergency room For her COPD exacerbation received steroids, doxycycline, overall clinically improved. Will be discharged on a prednisone burst, with doxycycline with close follow-up with primary care provider as outpatient I had extensive discussion with patient about the morbidity and mortality associated smoking, discussed smoking cessation For peripheral arterial disease on the left US/CV arterial duplex [facility] [id number] IMPRESSION: Moderate peripheral arterial disease with PACO of 0.76. Preserved triphasic flow in the visualized arteries. -Radial, and ulnar pulses present, no resting pain, no overlying skin changes, no color change - Continue aspirin, statin -Advised to quit smoking - Follow-up with cardiology as outpatient - Spoke to patient if any loss of pulses, sudden skin changes, if the left lower extremity appears blue, this is an emergency and immediate go to emergency room Physical Exam Const: COMMON NORMALS: no acute distress and patient oriented x3 Resp: COMMON NORMALS: normal respiratory effort, No retractions, No use of accessory muscles and clear to auscultation bilaterally AUSCULTATION: clear to auscultation bilaterally Cardio: COMMON NORMALS: regular rate, regular rhythm, S1 normal heart sound present and S2 normal heart sound present RATE: regular rate RHYTHM: regular rhythm HEART SOUNDS: S1 normal heart sound present and S2 normal heart sound present GI: COMMON NORMALS: Normal to inspection, nondistended, normoactive bowel sounds present and non-tender Extremity: COMMON NORMALS: no pedal edema Neuro: COMMON NORMALS: patient oriented x3 Psych: COMMON NORMALS: mental status grossly normal Discharge Data Studies Completed and Pending Completed Studies During Hospitalization Category Date Time Status XR chest 1V portable [id number] Stat Exams 05/25/25 10:55 [place] [id number] Routine Ultrasound 05/26/25 18:13 Completed CV. echo complete* [id number] Stat Ultrasound 05/26/25 15:43 Completed Pending at discharge Category Date Time Status Complete Blood Count w/Auto AM LABS Lab 05/28/25 04:00 Ordered Comprehensive Metabolic Panel AM LABS Lab 05/28/25 04:00 Ordered Radiology Impressions Chest X-Ray 05/25/25 10:55 Impression: Hyperinflation and atherosclerosis. Duplex Scan Lower Extremity Artery 05/26/25 18:13 IMPRESSION: Moderate peripheral arterial disease with PACO of 0.76. Preserved triphasic flow in the visualized arteries. Laboratory Results WBC 16.31 10^3/uL (3.29-11.43) H 05/27/25 04:11 RBC 4.42 10^6/uL (3.85-5.65) 05/27/25 04:11 Hgb 13.30 g/dL (11.27-16.99) 05/27/25 04:11 Hct 41.4 % (36-47) 05/27/25 04:11 MCV 93.7 fl (85-98) 05/27/25 04:11 MCH 30.1 pg (27-33) 05/27/25 04:11 MCHC 32.1 g/dL (30-55) 05/27/25 04:11 RDW 14.3 % (12.1-15.1) 05/27/25 04:11 Plt Count 165 10^3/cmm (157-399) 05/27/25 04:11 MPV 12.7 fL (7.4-10.4) H 05/27/25 04:11 Neut % (Auto) 92.1 % 05/27/25 04:11 Lymph % (Auto) 3.8 % 05/27/25 04:11 Burke % (Auto) 3.0 % 05/27/25 04:11 Eos % (Auto) 0.0 % 05/27/25 04:11 Baso % (Auto) 0.1 % 05/27/25 04:11 Neut # (Auto) 15.02 10^3/uL (1.8-7.7) H 05/27/25 04:11 Lymph # (Auto) 0.6 10^3/uL (0.8-4.8) L 05/27/25 04:11 Burke # (Auto) 0.5 10^3/uL (0.2-0.9) 05/27/25 04:11 Eos # (Auto) 0.0 10^3/uL (0.0-0.8) 05/27/25 04:11 Baso # (Auto) 0.0 10^3/uL (0.0-0.1) 05/27/25 04:11 Nucleated RBC % (auto) 0 % 05/27/25 04:11 Nucleated RBCs # 0.0 /100WBC 05/27/25 04:11 Specimen Type Arterial 05/25/25 11:09 Sample Site Radial, left 05/25/25 11:09 ABG pH 7.43 (7.35-7.45) 05/25/25 11:09 ABG pCO2 49.3 mmHg (35-45) H 05/25/25 11:09 ABG pO2 48.4 mmHg (80.0-100.0) L 05/25/25 11:09 ABG PO2/FiO2 Ratio 230 05/25/25 11:09 ABG HCO3 32.3 mmol/L (22-26) H 05/25/25 11:09 ABG Base Excess 6.5 mmol/L (-2.0-2.0) H 05/25/25 11:09 Alen Test Pos 05/25/25 11:09 Hematocrit 46.8 % (37-47) 05/25/25 11:09 Hgb O2 Saturation 82.2 % (95-100) L 05/25/25 11:09 Carboxyhemoglobin 4.6 %THgb (0.4-20.1) 05/25/25 11:09 Methemoglobin 1.1 % (0.4-1.5) 05/25/25 11:09 Total Hemoglobin 15.3 g/dL (12-16) 05/25/25 11:09 O2 Delivery Device Room air 05/25/25 11:09 FiO2 21.0 % 05/25/25 11:09 Picking Machine Operator ID Cak 05/25/25 11:09 Sodium 133 mmol/L (136-145) L 05/27/25 04:11 Potassium 4.1 mmol/L (3.5-5.1) 05/27/25 04:11 Chloride 91 mmol/L (98-107) L 05/27/25 04:11 Carbon Dioxide 31 mmol/L (22-29) H 05/27/25 04:11 Anion Gap 15.1 (5-19) 05/27/25 04:11 BUN 28 mg/dL (8-23) H 05/27/25 04:11 Creatinine 0.7 mg/dL (0.5-0.9) 05/27/25 04:11 GFR Calculation Not Reportable 05/27/25 04:11 Glucose 137 mg/dL (65-115) H 05/27/25 04:11 Estimat Average Glucose 123 05/25/25 10:35 Hemoglobin A1c 5.9 % (4.0-6.0) 05/25/25 10:35 Calculated Osmolality 284 mOsm/kg (285-295) L 05/27/25 04:11 Calcium 9.1 mg/dL (8.5-10.5) 05/27/25 04:11 Total Bilirubin 0.3 mg/dL (0.15-1.2) 05/27/25 04:11 AST 28 U/L (0-32) 05/27/25 04:11 ALT 21 U/L (0-33) 05/27/25 04:11 Alkaline Phosphatase 91 U/L (35-105) 05/27/25 04:11 Troponin T Baseline 9 ng/L (0-10) 05/25/25 10:35 Troponin T 120 Minute 7.58 ng/L (0-10) 05/25/25 13:11 Delta Troponin T -1.42 ABS# (0-10) L 05/25/25 13:11 Troponin T Hi Sens 6Hr < 6.0 ng/L (0-10) 05/25/25 17:01 Troponin T Hi Sens 6Hr Delta -3 ng/L (0-12) L 05/25/25 17:01 NT-Pro-B Natriuret Pep 2198 pg/mL (0-125) H 05/25/25 10:35 Total Protein 6.3 g/dL (6.6-8.7) L 05/27/25 04:11 Albumin 3.4 g/dL (3.5-5.2) L 05/27/25 04:11 Globulin 2.9 g/dL (1.3-4.6) 05/27/25 04:11 Triglycerides 100 mg/dL (0-150) 05/25/25 10:35 Cholesterol 139 mg/dL (0-200) 05/25/25 10:35 LDL Cholesterol, Calc 48 mg/dL (50-129) L 05/25/25 10:35 HDL Cholesterol 71 mg/dL (60-100) 05/25/25 10:35 LDL/HDL Ratio 0.68 RATIO (0.00-3.22) 05/25/25 10:35 Cholesterol/HDL Ratio 1.96 mg/dL (0.0-4.40) 05/25/25 10:35 TSH 3.98 uIU/mL (0.27-4.20) 05/25/25 10:35 Urine Color Yellow (Yellow) 05/25/25 11:12 Urine Appearance Clear (CLEAR) 05/25/25 11:12 Urine pH 7.0 (5-7) 05/25/25 11:12 Ur Specific [place] 1.009 (1.005-1.030) 05/25/25 11:12 Urine Protein Negative (Negative) 05/25/25 11:12 Urine Glucose (UA) Negative (Normal) 05/25/25 11:12 Urine Ketones Negative (Negative) 05/25/25 11:12 Urine Blood Negative (Negative) 05/25/25 11:12 Urine Nitrate Negative (Negative) 05/25/25 11:12 Urine Bilirubin Negative (Negative) 05/25/25 11:12 Urine Urobilinogen 1.0 mg/dL (Negative) 05/25/25 11:12 Ur Leukocyte Esterase Negative (Negative) 05/25/25 11:12 Urine RBC 0-2 /hpf (0-2) 05/25/25 11:12 Urine WBC 0-5 /hpf (0-5) 05/25/25 11:12 Ur Squamous Epith Cells 0-5 /hpf (0-5) 05/25/25 11:12 Amorphous Sediment Not Reportable 05/25/25 11:12 Urine Bacteria None seen /hpf (NONE) 05/25/25 11:12 Hyaline Casts 0-4 /lpf H 05/25/25 11:12 Influenza A (PCR) Negative (Negative) 05/25/25 11:19 Influenza Type B (PCR) Negative (Negative) 05/25/25 11:19 RSV (PCR) Negative (Negative) 05/25/25 11:19 SARS-CoV-2 (PCR) Negative (Negative) 05/25/25 11:19 Vitals Last Vital Signs Temp 97.2 F L 05/27/25 07:44 Pulse 77 05/27/25 07:44 Resp 19 H 05/27/25 07:44 BP 120/66 05/27/25 07:44 Pulse Ox 96 05/27/25 07:44 O2 Del Method Nasal Cannula 05/27/25 07:44 O2 Flow Rate 1.5 05/27/25 08:00 Discharge Plan Discharge Patient Disposition: Home Condition: Stable Prescriptions: New nitroglycerin 0.4 mg Tablet, Sublingual 0.4 mg sublingual Q5M PRN (Reason: Chest Pain) 30 Days Qty: 30 0RF doxycycline hyclate 100 mg tablet 100 mg PO BID 5 Days Qty: 10 0RF prednisone 20 mg tablet 20 mg PO BID 5 Days Qty: 10 0RF Continued levothyroxine 88 mcg tablet 88 mcg PO DAILY metoprolol succinate 50 mg capsule,sprinkle,ER 24hr 50 mg PO DAILY aspirin 81 mg tablet,delayed release (DR/EC) 81 mg PO DAILY cholecalciferol (vitamin D3) 25 mcg (1,000 unit) capsule 2,000 unit PO QPM pregabalin [Lyrica] 200 mg capsule 200 mg PO TID 30 Days Qty: 90 1RF clonazepam [Klonopin] 0.5 mg tablet 0.25 mg PO DAILY PRN (Reason: anxiety) Qty: 10 0RF albuterol sulfate 90 mcg/actuation HFA aerosol inhaler 2 puff INHALATION Q6H PRN (Reason: Shortness Of Breath Or Wheezing) atorvastatin 40 mg tablet 40 mg PO QPM omeprazole 40 mg capsule,delayed release(DR/EC) 40 mg PO DAILY telmisartan 80 mg tablet 80 mg PO DAILY fluticasone furoate-vilanterol [Breo Ellipta] 200-25 mcg/dose blister with device 1 inh INHALATION DAILY Discharge Order = DC NOW: Discharge Order (Routine); Ordered 05/27/25 Ordered By: Dustin Lamb Referrals: Trey Hensley MD [Primary Care Provider, Family Practice] Referral Note: please contact your doctors office for a follow-up appointment to be scheduled. Rip Rocha MD [Physician, Cardiology] - 1-3 days Discharge Diet: Cardiac Discharge Activity: Resume usual activity Patient Instructions: Opioid Safety, Patient Portal & Coral Instructions Discharge Attestations Time Spent in Discharge Care*: greater than 30 min Quality Metrics Clinical Quality Measures [ No reported AMI, CVA or VTE this stay] Coding Level of Care Code 98883 Total time (in minutes) for Discharge: 45 Diagnoses Chest pain R07.9 COPD exacerbation J44.1
[2025-05-27] MEDS: metoprolol succinate ER (24 HR) 50 mg Tablet PO (10:35)
== END 2025-05-27 11:45 | disposition home or self-care (01) | DRG 192 ==
LOC: ER 16:06 → MEDSURG 16:12
PROVIDERS: Admitting Provider Family Medicine; Emergency Provider Family Medicine; PCP Family Medicine; Visit Provider Family Medicine
DX: J44.1 Chronic obstructive pulmonary disease with (acute) exacerbation (principal); I73.9 Peripheral vascular disease, unspecified; E78.5 Hyperlipidemia, unspecified; I10 Essential (primary) hypertension; G89.29 Other chronic pain; M54.2 Cervicalgia; M51.16 Intervertebral disc disorders with radiculopathy, lumbar region; M51.379 Other intervertebral disc degeneration, lumbosacral region without mention of lumbar back pain or lower extremity pain; F17.210 Nicotine dependence, cigarettes, uncomplicated; R07.9 Chest pain, unspecified; E03.9 Hypothyroidism, unspecified; Z79.82 Long term (current) use of aspirin; Z89.611 Acquired absence of right leg above knee
CPT/HCPCS: 36415; 36600; 71045; 80053; 80061; 81001; 82805; 83036; 83880; 84443; 84484; 85025; 87637; 93005; 93306; 93926; 94640; 94664; 96372; 96374; 99285; G0378; J1650; J1938; J2470; J2919; J3490; J7626; J9999

== ENCOUNTER → 2025-08-30 13:43 | Outpatient (BNVA) | payer MEDICARE, SELFPAY | PROVIDERS: PCP Family Medicine; Referring Provider Family Medicine; Visit Provider Internal Medicine Cardiovascular Disease | DX: I25.9 Chronic ischemic heart disease, unspecified (principal); J44.9 Chronic obstructive pulmonary disease, unspecified; Z72.0 Tobacco use | CPT/HCPCS: 99204 ==

== ENCOUNTER 2025-09-18 08:46 | Outpatient (CLI) | payer MEDICARE, SELFPAY ==
--- NOTE | 2025-09-18 | ECG_ITS ---
[facility] Date: 2025-09-18 Pat Name: Maryana Patterson Department: Room: Gender: Female [employer] Technical Lead: : 1950 Requested By: Rip Rocha Order Number: [id number] John MD: Leno Elliott M.D. Interpretive Statements LEXISCAN SESTAMIBI STRESS TEST Procedure: At the baseline, the blood pressure was 166/86 mmHg with a heart rate of 61 bpm. The electrocardiogram showed normal sinus rhythm, normal axis with normal ST and T's. The Lexiscan was infused over a period of 20 seconds. A total of 0.4 mg of Lexiscan was infused. The stress phase was continued for a total of 5 minutes. Heart rate was at the end of stress phase was 94 bpm and a blood pressure of 167/86 mmHg. The EKG at the peak infusion revealed normal sinus rhythm with no significant ST-T wave changes. Sestamibi was injected 20 seconds after the Lexiscan infusion. Blood pressure at the end of recovery phase was 169/83 mmHg with a heart rate of 88 bpm. Conclusion: 1. Normal EKG response to Lexiscan infusion 2. No Lexiscan induced chest pain or cardiac arrhythmia. 3. Normal blood pressure and heart rate response. 4. Sestamibi/sestamibi perfusion scan pending; see separate report. Electronically Signed On 09-25-2025 10:49:02 HUMAN SERVICES PROFESSIONAL by Leno Elliott M.D. [email or web address]
--- NOTE | 2025-09-18 08:53 | NMCV_ITS ---
NM livia perf SPECT r/s* [id number] Maryana Patterson Age: 75 Gender: F : 1950 Exam Date: 09/18/2025 10:03 Ordering Phys: Rip Rocha MD ([email or web address]) Technologist: ZAC Jaimes Exam Location: [facility] Indications: cp STRESS TEST [facility] IMAGE PROTOCOL Rest/Stress 1 Lexiscan Day Radiopharmaceutical Dose (mCi) Administration Site Administered by Rest: Tc-99m 11 IV ZAC Jaimes Sestamibi Stress:Tc-99m 32.6 IV Ada Tyler, MUSIC COMPOSITION TEACHER Sestamibi Rest: 18-Sep-2025 60 Discovery 630 Stress: 18-Sep-2025 30 Discovery 630 0.4mg Lexiscan. Supine position only as patient was unable to lay prone. SPECT RESULTS Technical Quality: Good Raw Data Analysis: Normal Image Corrections: No attenuation or motion correction applied Summed Stress Score: 0 Summed Rest Score: 0 Summed Difference Score: 0 PERFUSION FINDINGS SPECT images demonstrate homogeneous tracer distribution throughout the myocardium. FUNCTIONAL RESULTS (calculated via Gated SPECT) Stress Image LV EF (%): 82 Stress EDV (mL):34 TID: 0.75 Stress ESV (mL):6 FUNCTIONAL FINDINGS: There is normal left ventricular systolic function. IMPRESSIONS 1. Normal myocardial perfusion imaging with no evidence of ischemia. 2. LV systolic function normal. Leno Elliott MD (Electronically Signed) Final Date: 22 September 2025 10:59 S
[2025-09-18 08:54] VITALS: BMI 18.3
[2025-09-18 10:53] VITALS: BP 169/83; PULSE 86
--- NOTE | 2025-09-18 14:15 | USCV_ITS ---
Maryana Patterson Age: 75 Gender: F : 1950 Exam Date: 09/18/2025 12:37 Ordering Phys: Rip Rocha MD ([email or web address]) Technologist: Exam Location: [facility] [place] Indication: cp sob BP: 130 / 80 HR: 72 Rhythm: Sinus Technical Quality: Adequate MEASUREMENTS (Male / Female) Normal Values 2D ECHO LV Diastolic Diameter PLAX 3.0 cm 4.2 - 5.9 / 3.9 - 5.3 cm IVS Diastolic Thickness 1.1 cm 0.6 - 1.0 / 0.6 - 0.9 cm IVS Systolic Thickness 1.5 cm LVPW Diastolic Thickness 1.2 cm 0.6 - 1.0 / 0.6 - 0.9 cm LVPW Systolic Thickness 1.4 cm LVOT Diameter 1.9 cm LV Ejection Fraction 2D Teich 65.1 % LV Ejection Fraction MOD 4C 65.3 % LV Ejection Fraction MOD 2C 64.0 % LV Ejection Fraction 2C AL 66.1 % LA Diameter 2.7 cm RA Systolic Volume 4C AL 26.3 ml RA Systolic Volume 4C MOD 24.6 ml LA Sys Volume AL 31.3 cm cubed LA Sys Volume Index AL 22.2 cm cubed/m squared IVC Diameter 1.4 cm M-MODE LA Ao Ratio MM 1.1 AV Cusp Separation MM 1.4 cm DOPPLER AV Peak Velocity 84.0 cm/s LVOT Peak Velocity 67.0 cm/s AV Area Cont Eq vti 3.8 cm squared AV Area Cont Eq pk 2.3 cm squared MV Peak Velocity 95.0 cm/s MV Area PHT 3.7 cm squared Mitral E to A Ratio 0.9 TR Peak Velocity 388.0 cm/s TR Peak Gradient 60.2 mmHg TV Peak E Velocity 99.0 cm/s PV Peak Velocity 101.0 cm/s FINDINGS Left Ventricle Normal left ventricular size, systolic function and wall thickness, with no regional wall motion abnormalities. Left ventricular ejection fraction is estimated at 65 %. Right Ventricle Mildly dilated RV with normal RV systolic function. Right Atrium Mildly dilated Left Atrium Normal left atrial size. IA Septum Normal interatrial septum. Mitral Valve Structurally normal mitral valve. Aortic Valve Thickened aortic valve. Tricuspid Valve Structurally normal tricuspid valve. Mild tricuspid valve regurgitation. TVPG = 42 mmHg. Moderately elevated pulmonary pressure (45-50 mmHg). Pulmonic Valve Structurally normal pulmonic valve. Mild pulmonary valve regurgitation. Pericardium There is a trace pericardial effusion over the anterior surface. Aorta Normal size aortic root and proximal ascending aorta. IVC Normal inferior vena cava. CONCLUSIONS Normal LV size and LV systolic function. Estimated LVEF normal 65%. Mildly dilated RV and RA. Normal RV systolic function. Mild tricuspid regurgitation with elevated TVPG. Moderately elevated pulmonary pressure (45-50 mmHg). Samuel Flores MD (Electronically Signed) Final Date: 25 September 2025 14:46 S
== END 2025-09-18 08:47 | disposition home or self-care (01) ==
LOC: CDL 08:47
PROVIDERS: PCP Family Medicine; Visit Provider Internal Medicine Cardiovascular Disease
DX: R06.02 Shortness of breath (principal); R07.9 Chest pain, unspecified; I36.1 Nonrheumatic tricuspid (valve) insufficiency; I27.20 Pulmonary hypertension, unspecified
CPT/HCPCS: 36415; 78452; 93017; 93306; 96374; A9500; J2785

== ENCOUNTER → 2025-10-11 08:41 | Outpatient (BNVA) | payer MEDICARE, SELFPAY | PROVIDERS: PCP Family Medicine; Referring Provider Internal Medicine Cardiovascular Disease; Visit Provider Internal Medicine | DX: J44.89 Other specified chronic obstructive pulmonary disease (principal); J47.9 Bronchiectasis, uncomplicated; R91.8 Other nonspecific abnormal finding of lung field; Z99.81 Dependence on supplemental oxygen; F17.210 Nicotine dependence, cigarettes, uncomplicated; J44.9 Chronic obstructive pulmonary disease, unspecified; J84.10 Pulmonary fibrosis, unspecified; J43.9 Emphysema, unspecified; T78.40XA Allergy, unspecified, initial encounter; X58.XXXA Exposure to other specified factors, initial encounter | CPT/HCPCS: 99205; 99215; Q3014 ==

== ENCOUNTER 2025-10-19 14:00 | Outpatient (CLI) | payer MEDICARE, SELFPAY ==
--- NOTE | 2025-10-19 13:30 | PETR_ITS ---
PROCEDURE INFORMATION: Exam: PET/CT Skull Base to Mid-thigh Exam date and time: 10/19/2025 2:02 PM Age: 75 years old Clinical indication: Abnormal findings; Lung nodules LABS AND CLINICAL REPORTS: Glucose: 80 mg/dl Treatment strategy for malignancy (PET staging): Initial Staging (PI) TECHNIQUE: Imaging protocol: Following at least four-hour fasting and following the injection of radiopharmaceutical, low dose CT images were obtained. Then, PET images were obtained. Attenuation corrected images were constructed using the CT scan. Fused images of PET and CT were reviewed. The standardized uptake values (SUV) reported below are maximum values within a region of interest, expressed in gm/ml. Exam includes orbital meatal line to mid-thigh. SUV normalization method: BodyWeight Radiopharmaceutical: 7.82 mCi F-18 FDG (Fluorodeoxyglucose), IV. Time of imaging post radiopharmaceutical administration: 46 minutes Injection site: LEFT HAND COMPARISON: Lung cancer screening low-dose CT chest 11/24/2024, PT PET Scan 06/14/2021 FINDINGS: Brain: On the nondedicated limited brain images there is no abnormal distribution of the radiotracer in the martell and white matter. Pharynx: Normal distribution of the radiotracer in nasopharyngeal, and oropharyngeal structures. Larynx: Normal distribution of the radiotracer in laryngeal structures. Lungs, pleura and trachea: No abnormal uptake. Severe centrilobular emphysema. No lung nodules or masses. Retained endobronchial secretions in the right lower lobe. Stable 3 mm calcified granuloma in the right middle lobe. No pleural effusion. Heart: Normal physiologic uptake. There is no cardiomegaly. Severe coronary artery calcification is present. There is no pericardial effusion. Mediastinal space: No abnormal uptake. Liver: Normal size without abnormal radiotracer uptake. Gallbladder and biliary ducts: No abnormal uptake. Pancreas: Normal distribution of radiotracer. Spleen: Normal size without abnormal radiotracer uptake. Adrenal glands: No abnormal uptake. No nodules. Kidneys and ureters: Normal physiologic uptake. No hydronephrosis. Stomach and bowel: Increased uptake in the rectosigmoid likely represents benign finding. Extensive diverticulosis of the sigmoid colon. Intraperitoneal and retroperitoneal spaces: No abnormal uptake. No ascites. Bladder: Normal physiologic uptake. Reproductive: No abnormal uptake. The uterus is absent post surgically. Vasculature: No abnormal uptake. No aortic aneurysm. Extensive densely calcified atherosclerotic plaque in the abdominal aorta, iliac and femoral arteries. Stent in the right superficial femoral artery, vascular graft in the right thigh, likely a femoropopliteal graft. Lymph nodes: No abnormal uptake. No lymphadenopathy in the head, neck, chest, abdomen, pelvis, and extremities. Skeleton: No abnormal uptake in the visualized axial and appendicular skeleton. Soft tissues: No abnormal uptake in the visualized head, neck, chest, abdomen, pelvis, and extremities. METRICS: Mediastinal blood pool: Max SUV of 2.4, mean SUV of 2.2 Liver uptake: Max SUV of 2.8, mean SUV of 2.5 PET/PET skull to thigh INIT [id number] IMPRESSION: No abnormal uptake concerning for malignancy. No discrete lung nodules or masses. Persistent severe emphysema. This patient is enrolled in lung cancer screening CT program.Retained secretions in the right lower lobe bronchi.
== END 2025-10-19 14:01 | disposition home or self-care (01) ==
LOC: RAD 14:01
PROVIDERS: PCP Family Medicine; Visit Provider Internal Medicine
DX: R91.8 Other nonspecific abnormal finding of lung field (principal); J43.2 Centrilobular emphysema; I25.10 Atherosclerotic heart disease of native coronary artery without angina pectoris; K57.30 Diverticulosis of large intestine without perforation or abscess without bleeding; Z90.710 Acquired absence of both cervix and uterus
CPT/HCPCS: 78815; A9552

== ENCOUNTER 2025-10-22 08:50 | Outpatient (CLI) | payer MEDICARE, SELFPAY ==
[2025-10-22 09:15] VITALS: PULSE 59; RESP 18; O2SAT 91
== END 2025-10-22 08:51 | disposition home or self-care (01) ==
LOC: RT 08:51
PROVIDERS: PCP Family Medicine; Visit Provider Internal Medicine
DX: J44.9 Chronic obstructive pulmonary disease, unspecified (principal); J98.8 Other specified respiratory disorders
CPT/HCPCS: 94060; 94726; 94729; J7613